=== PATIENT | male | born 1955 | race Caucasian/White ===

== ENCOUNTER 2025-05-26 21:16 | Inpatient (IN) | payer MEDICARE, BC, SELFPAY ==
[2025-05-26] VITALS (20 sets, daily range): BP systolic 132–174; BP diastolic 85–110; PULSE 65–93; RESP 17–44; O2SAT 83–100
--- NOTE | 2025-05-26 21:15 | RT.EKG_ITS ---
APPROVED REPORT Exam: Resting ECG Reason for Exam: Shortness of Breath Patient Location: E HR:82 bpm ECG Measurements Heart Rate 82 AXIS LA [id number] P [id number] QRSd 132 QRS 8 QT 369 T 30 QTc 432 Conclusion Atrial fibrillation...V-rate 66-103, irreg A-activity IVCD, consider RBBB...QRSd>120mS, terminal axis(90,270) ST depr, consider ischemia, anterolateral lds...ST <-0.10mV, I aVL V2-V6
--- NOTE | 2025-05-26 21:30 | DI.RAD_ITS ---
Exam(s) XR PORTABLE CHEST AP EXAM: XR PORTABLE CHEST AP CLINICAL HISTORY: dyspnea TECHNIQUE: 2D digital imaging was performed of the chest. One image was obtained. An AP view was obtained. COMPARISON: No exams were available for comparison FINDINGS: MEDIASTINUM: Normal. HEART: Heart is mildly enlarged. PULMONARY VASCULATURE: There is prominence of the pulmonary vasculature. LUNGS: Bilateral interstitial markings are present which may represent edema. No focal consolidating infiltrate is seen. PLEURAL SPACE: No pleural effusion or pneumothorax. BONE:Within normal limits for the patient's age. OTHER FINDINGS:Normal. IMPRESSION: 1. Cardiomegaly, pulmonary of venous congestion and interstitial edema. 2. The preliminary [facility] report was reviewed. DATA REPOSITORY: RADIATION DOSE DELIVERED:
[2025-05-26 21:33] LABS: BE (Venous) 5 mmol/L (-2-3); HCO3 (Venous) 32 mmol/L (23-28); O2 Sat (Venous) 56 %; TCO2 (Venous) 31 mmol/L (24-29); pO2 (Venous) 35 mmHg
[2025-05-26 21:34] LABS: Abs Immature Grans 0.21 10^3/uL (0.0-0.06); HCT 35.1 % (40.0-50.0); HGB 10.3 g/dL (13.5-17.5); Immature Grans % 2.4 %; MCH 28.2 pg (27.0-33.0); MCHC 29.3 % (32.0-36.0); MCV 96 fL (80-95); MPV 9.1 fL (8.0-11.0); Platelet Count 205 10^3/uL (130-400); RBC 3.65 10^6/uL (4.36-5.78); RDW 15.9 % (11.8-14.1); RDW-SD 55.6 fL; WBC 8.76 10^3/uL (4.4-10.8)
[2025-05-26 21:36] LABS: pCO2 (Venous) 74 mmHg (41-51)
--- NOTE | 2025-05-26 21:50 | ED.GENADUL_ITS ---
Discharge Plan Disposition Patient Disposition: Admit to [facility] Condition: Stable Discharge Details Clinical Impression: Acute respiratory failure with hypoxia and hypercapnia, Acute exacerbation of congestive heart failure Primary Care Provider: RenettaLocal ED Provider: Kiran Gaspar Home Meds and New Rx's Prescriptions: No Action Xarelto 20 mg tablet 20 mg PO DAILY Rx Instructions: must administer with evening meal furosemide [Lasix] 20 mg tablet 20 mg PO BID insulin lispro [Humalog KwikPen Insulin] 100 unit/mL insulin pen 1 sliding scale dose subcut USEASDIRECTD atorvastatin [Lipitor] 10 mg tablet 10 mg PO DAILY metoprolol tartrate 50 mg tablet 50 mg PO BID Ozempic 0.25 mg or 0.5 mg (2 mg/3 mL) pen injector 0.25 mg subcut QWEEK Rx Instructions: for 4 weeks metformin 1,000 mg tablet 1,000 mg PO BID HPI General Mode of arrival: EMS . Date/Time Provider Initiated Documentation: 05/26/25 21:22 . Limitations to Documentation: no limitations . Information obtained by: patient . History of Present Illness 70 year old M presents to the emergency department with the chief complaint of dyspnea, described as moderate, Patient started experiencing this day(s) (2) and it has been constant. No relieving factors improve symptom(s), No exacerbating factors reported . Patient notes no other symptoms.. Patient did receive the following treatments prior to arrival, none Related Data Home Medications ?Medication ?Instructions ?Recorded ?Confirmed atorvastatin 10 mg tablet (Lipitor) 10 mg PO DAILY 05/26/25 furosemide 20 mg tablet (Lasix) 20 mg PO BID 05/26/25 05/26/25 insulin lispro 100 unit/mL 1 sliding scale dose subcut 05/26/25 05/26/25 subcutaneous pen (Humalog KwikPen USEASDIRECTD (U-100) Insulin) metformin 1,000 mg tablet 1,000 mg PO BID 05/26/25 metoprolol tartrate 50 mg tablet 50 mg PO BID 05/26/25 05/26/25 rivaroxaban 20 mg tablet (Xarelto) 20 mg PO DAILY 05/1305/26/25 semaglutide 0.25 mg or 0.5 mg (2 0.25 mg subcut QWEEK 05/26/25 05/26/25 mg/3 mL) subcutaneous pen injector (Ozempic) General Stated Complaint: SOB UMESH: 2 Review of Systems All systems reviewed & are unremarkable except as noted in HPI and below Constitutional Constitutional: Denies chills, Denies fever(s) and Denies weakness Cardiovascular Cardiovascular: Denies chest pain and Reports dyspnea Respiratory Respiratory: Denies cough and Reports dyspnea Gastrointestinal Gastrointestinal: Denies abdominal pain, Denies nausea and Denies vomiting Neurologic Neurologic: Denies weakness Exam Const General: no acute distress Orientation: alert [facility] Head: normal to inspection Ears: external ears normal General nose exam: external nose normal Mouth: moist mucous membranes Eyes General: appearance normal, both eyes and all related structures Neck Neck: normal visual inspection Resp Auscultation: diminished lung sounds Cardio Jugular venous pressure: no JVD Rate: regular rate GI Palpation: soft and nontender Skin General skin exam: no rashes or lesions noted Neuro General: patient alert and patient oriented x3 Extrem General: edema Psych Mental Status: mental status grossly normal Course Vital Signs Vital signs: Vital Signs Pulse 83 05/26/25 21:16 Respiratory Rate 05/26/25 21:16 Blood Pressure 166/110 H 05/26/25 21:16 Pulse Oximetry 83 L 05/26/25 21:16 Pulse 83 05/26/25 21:22 Respiratory Rate 20 05/26/25 21:22 Respiratory Effort Short of Breath, Labored 05/26/25 21:22 Respiratory Depth Normal 05/26/25 21:22 Respiratory Pattern Normal 05/26/25 21:22 Blood Pressure 166/110 H 05/26/25 21:22 Blood Pressure Position Sitting 05/26/25 21:22 Pulse Oximetry 83 L 05/26/25 21:22 Oxygen Delivery Method Room Air 05/26/25 21:22 Oxygen Flow Rate 0 05/26/25 21:22 Lab/Test Results Lab/Test Results: Laboratory Tests Range/Units 05/26/25 21:24 WBC (4.4-10.8) 10^3/uL 8.76 RBC (4.36-5.78) 10^6/uL 3.65 L Hgb (13.5-17.5) g/dL 10.3 L Hct (40.0-50.0) % 35.1 L MCV (80-95) fL 96 H MCH (27.0-33.0) pg 28.2 MCHC (32.0-36.0) % 29.3 L RDW (11.8-14.1) % 15.9 H Plt Count (130-400) 10^3/uL 205 MPV (8.0-11.0) fL 9.1 Immature Gran % % 2.4 Neutrophils % % 65.2 Lymphocytes % % 19.6 Monocytes % % 10.6 Eosinophils % % 1.5 Basophils % % 0.7 Nucleated RBC % (0.0-0.3) % 0.2 Absolute Neutrophils (1.2-6.7) 10^3/uL 5.71 Absolute Lymphocytes (1.2-3.4) 10^3/uL 1.72 Absolute Monocytes (0.1-0.8) 10^3/uL 0.93 H Absolute Eosinophils (0.0-0.7) 10^3/uL 0.13 Absolute Basophils (0.0-0.2) 10^3/uL 0.06 VBG pH (7.31-7.41) 7.25 L VBG pCO2 (41-51) mmHg 74 H* VBG pO2 mmHg 35 VBG HCO3 (23-28) mmol/L 32 H VBG Total CO2 (24-29) mmol/L 31 H VBG O2 Saturation % 56 VBG Base Excess (-2-3) mmol/L 5 H Medical Decision Making 70-year-old male with a history of A-fib, depression, who comes in with chief complaint of shortness of breath over the last couple days. He denies any fevers, chills, chest pain, abdominal pain, vomiting. He was placed on CPAP with EMS which is continued here and he says he feels improved with this. He has pitting edema both lower extremities and diminished lung sounds at the bases bilaterally. He is able to speak in 4-5 word sentences. I suspect CHF exacerbation we will check a CBC, CMP, troponins, proBNP and a chest x-ray. If no clear cause for his symptoms on this workup is found we will consider a CTA to evaluate for PE if his renal function is adequate. I was planning on doing a POCUS exam to evaluate his EF and see if they are B-lines but unfortunately the ultrasound machine has a error message that I am not able to clear. Patient has elevated pCO2 which could be from His obesity versus possibly sleep apnea but will trial low-dose of Solu-Medrol and a DuoNeb. Patient feeling better and is now off of CPAP, he does still desaturate into the mid 80s off of oxygen so he is on nasal cannula. Labs show elevated proBNP, negative troponin, x-ray on my read consistent with CHF. He is already urinated 200 cc after evaluating milligrams of Lasix since he is on 40 mg daily. Given his hypoxia and his presentation I feel he should be admitted, spoke with Dr. Cast who accepts for admission Differential Diagnosis Differential Diagnosis: CHF, pneumonia, ACS Lab Data Lab results reviewed: Yes I reviewed the patient's lab results. ECG Data Attestation: I personally reviewed and interpreted this ECG (s) as follows: Prior ECG tracings: not available for review Interpretation: A-fib, rate of 82, no STEMI [facility] All Active Problems (Updated 05/26/25 @ 22:41 by Kiran Gaspar MD) Insulin dependent type 2 diabetes mellitus (Acute) Atrial fibrillation (Chronic) Acute exacerbation of congestive heart failure (Acute) Acute respiratory failure with hypoxia and hypercapnia (Acute) Social History Smoking risk assessment performed?: No
[2025-05-26 21:52] LABS: INR 1.2 (0.9-1.1); PTT Activated 27.1 sec (20.6-30.2); Prothrombin Time 11.6 sec (9.1-11.1)
[2025-05-26 21:59] LABS: ALT 22 U/L (16-63); AST 16 U/L (15-37); Albumin 3.2 g/dL (3.4-5.0); Alkaline Phosphatase 53 U/L (46-116); Anion Gap 4.7 mmol/L (3-11); BUN 23 mg/dL (7-18); Bilirubin, Total 0.3 mg/dL (0.2-1.0); CO2 33.3 mmol/L (21.0-32.0); Calcium 8.6 mg/dL (8.5-10.1); Chloride 104 mmol/L (98-107); Estimated GFR 96.40 (mL/min/1.73m2); Glucose 194 mg/dL (74-106); Magnesium 1.8 mg/dL (1.8-2.4); NT-proBNP 2347 pg/mL (<300); Potassium 5.3 mmol/L (3.5-5.1); Sodium 142 mmol/L (136-145); Total Protein 7.4 g/dL (6.4-8.2); Troponin I 13 ng/L (<or=76)
[2025-05-26] MEDS: methylPREDNISolone SUCC 125 MG VIAL IVP (22:09)
[2025-05-26] MEDS: Furosemide 100 MG/10 ML VIAL 80 MG IVP (22:09)
--- NOTE | 2025-05-26 22:29 | W.PM.HP.N ---
Date of service: 05/26/25 Time of Service: 22:29 Assessment and Plan Assessment and plan (1) Acute respiratory failure with hypoxia and hypercapnia: Status: Acute Assessment and plan: - Likely secondary to presumed acute exacerbation of congestive heart failure with lower extremity edema and pulmonary edema seen on chest x-ray - Pulse ox noted to be in the low 80s when presenting in the emergency department on room air, additionally VBG showed elevated CO2 - Patient was placed on CPAP given IV methylprednisolone for presumed superimposed COPD exacerbation (2) Acute exacerbation of congestive heart failure: Status: Acute Assessment and plan: - Unknown last EF as patient does not seek care in this area - Status post 80 mg IV Lasix in the emergency department - Continue to follow strict I's and O's - Continue 40 mg IV Lasix twice daily - Follow-up a.m. echocardiogram - Continue home Lipitor, hold home Lasix 20 mg p.o. twice daily as he will be given IV (3) Atrial fibrillation: Status: Chronic Assessment and plan: - Continue home metoprolol tartrate 50 mg p.o. twice daily, and 20 mg Xarelto (4) Insulin dependent type 2 diabetes mellitus: Status: Acute Assessment and plan: - Hold home Ozempic, Humalog and metformin - Sliding scale insulin, carb consistent diet History of Present Illness History of Present Illness Chief Complaint: shortness of breath Narrative: 62-year-old gentleman with a past medical history of congestive heart failure, atrial fibrillation, IDDM who presents to the emergency department with shortness of breath. Patient states that over the last few days he has become progressively more short of breath and noticed that he was experiencing some lower extremity edema. He denied any headache, lightheadedness, cough, fever, chest pain, nausea vomiting or diarrhea. According to EMS upon patient's arrival he was saturating in the low 80s and was placed on supplemental oxygen, this was confirmed upon arrival when patient's oxygen saturation was noted as being 83 on room air. Given his work of breathing he was placed on CPAP and did have improvement in his respiratory status. He was noted as having lower extremity edema and diminished breath sounds in bilateral bases. CBC and CMP were unremarkable patient did have elevated proBNP of 2347, VBG showed elevated CO2 of 70, and x-ray did show pulmonary edema for which patient received 80 mg of IV Lasix and had good urine output. Additionally, patient was also given IV Solu-Medrol though he does not have history of COPD. At which time emergency room physician paged hospitalist for admission for patient with acute hypoxic and hypercapnic respiratory failure secondary to acute exacerbation of congestive heart failure. Review of Systems All systems reviewed & are unremarkable except as noted in HPI and below PFSH All Active Problems (Updated 05/26/25 @ 22:41 by Kiran Gaspar MD) Insulin dependent type 2 diabetes mellitus (Acute) Atrial fibrillation (Chronic) Acute exacerbation of congestive heart failure (Acute) Acute respiratory failure with hypoxia and hypercapnia (Acute) Social History Smoking risk assessment performed?: No Meds Allergies and Home Medications Home Medications ?Medication ?Instructions ?Recorded ?Confirmed ?Type atorvastatin 10 mg tablet (Lipitor) 10 mg PO DAILY 05/26/25 05/26/25 History furosemide 20 mg tablet (Lasix) 20 mg PO BID 05/26/25 05/26/25 History insulin lispro 100 unit/mL 1 sliding scale dose subcut 05/26/25 05/26/25 History subcutaneous pen (Humalog KwikPen USEASDIRECTD (U-100) Insulin) metformin 1,000 mg tablet 1,000 mg PO BID 05/26/25 05/26/25 History metoprolol tartrate 50 mg tablet 50 mg PO BID 05/26/25 05/26/25 History rivaroxaban 20 mg tablet (Xarelto) 20 mg PO DAILY 05/26/25 05/26/25 History semaglutide 0.25 mg or 0.5 mg (2 0.25 mg subcut QWEEK 05/26/25 05/26/25 History mg/3 mL) subcutaneous pen injector (Ozempic) Exam Narrative Exam Narrative: Fatigued, obese gentleman laying in bed in no acute distress with CPAP on, heart regular rhythm, lungs with diminished breath sounds in bilateral bases, abdomen soft, nontender, nondistended Results Labs 05/27/25 05:18 05/27/25 05:18 Labs: Laboratory Results - last 24 hr 05/26/25 21:24 WBC 8.76 RBC 3.65 L Hgb 10.3 L Hct 35.1 L MCV 96 H MCH 28.2 MCHC 29.3 L RDW 15.9 H Plt Count 205 MPV 9.1 Immature Gran % 2.4 Neutrophils % 65.2 Lymphocytes % 19.6 Monocytes % 10.6 Eosinophils % 1.5 Basophils % 0.7 Nucleated RBC % 0.2 Absolute Neutrophils 5.71 Absolute Lymphocytes 1.72 Absolute Monocytes 0.93 H Absolute Eosinophils 0.13 Absolute Basophils 0.06 PT 11.6 H INR 1.2 H APTT 27.1 VBG pH 7.25 L VBG pCO2 74 H* VBG pO2 35 VBG HCO3 32 H VBG Total CO2 31 H VBG O2 Saturation 56 VBG Base Excess 5 H Sodium 142 Potassium 5.3 H Chloride 104 Carbon Dioxide 33.3 H Anion Gap 4.7 BUN 23 H Creatinine 0.8 Est GFR (CKD-EPI 2020) 96.40 Glucose 194 H Calcium 8.6 Magnesium 1.8 Total Bilirubin 0.3 AST 16 ALT 22 Alkaline Phosphatase 53 Troponin I 13 NT-Pro-B Natriuret Pep 2347 H Total Protein 7.4 Albumin 3.2 L Last Vital Signs Pulse 83 05/26/25 21:22 Resp 20 05/26/25 21:22 BP 166/110 H 05/26/25 21:22 Pulse Ox 83 L 05/26/25 21:22 Time Spent Time spent with Patient: >75 minutes Time was spent: preparing to see the patient(eg.review tests), obtaining and/or reviewing separately otained hiistory, ordering medications,tests, procedures, referring, communicating with other health resident caregiver, indepentently interpreting results, counseling the patient and care coordination
[2025-05-26] MEDS: Albuterol/Ipratropium 3 ML UPD VIAL UPD (22:32)
--- NOTE | 2025-05-26 23:12 | DI.[facility]_ITS ---
PROCEDURE INFORMATION: Exam: XR Chest Exam date and time: 05/26/2025 9:57 PM Age: 70 years old Clinical indication: Dyspnea TECHNIQUE: Imaging protocol: Radiologic exam of the chest. Views: 1 view. COMPARISON: No relevant prior studies available. FINDINGS: Lungs: Changes of pulmonary vascular congestion and interstitial edema. Pleural spaces: Unremarkable. No pleural effusion. No pneumothorax. Heart/Mediastinum: Heart is prominent. Bones/joints: Unremarkable. IMPRESSION: Pulmonary vascular congestion and interstitial edema. Dictated and Authenticated by: Karl Burnett MD. Orderin Chasity Beck MD
[2025-05-26 23:14] LABS: Troponin I 16 ng/L (<or=76)
[2025-05-27] VITALS (105 sets, daily range): BP systolic 139–188; BP diastolic 62–155; PULSE 50–123; RESP 14–32; TEMP 36–37.4; O2SAT 85–100
[2025-05-27 01:13] LABS: Troponin I 14 ng/L (<or=76)
[2025-05-27] MEDS: Albuterol 2.5 MG/3 ML INH SOLN VIAL UPD ×2 (02:18→06:10)
--- NOTE | 2025-05-27 02:20 | NUR.NOTE ---
Nursing Note: Pt rang call light stating he feels like he can't take a good deep breath. Pt is visibly tachypneic, diaphoretic, with increased work of breathing, O2 sats 86-89% on 6L oxymask. Placed back on CPAP, respiratory to bedside. Given PRN neb, see MAR. See CPAP charting for settings. O2 saturation improved to 90-91% on CPAP. Notified Fallon Cast MD of patient situation, no new orders at this time.
[2025-05-27] MEDS: Acetaminophen 325 MG TAB 650 MG PO ×2 (04:04→18:15)
[2025-05-27] MEDS: Albuterol/Ipratropium 3 ML UPD VIAL UPD ×4 (04:16→22:15)
[2025-05-27 05:24] LABS: HCT 35.5 % (40.0-50.0); HGB 11.0 g/dL (13.5-17.5); MCH 29.2 pg (27.0-33.0); MCHC 31.0 % (32.0-36.0); MCV 94 fL (80-95); MPV 9.2 fL (8.0-11.0); Platelet Count 187 10^3/uL (130-400); RBC 3.77 10^6/uL (4.36-5.78); RDW 15.6 % (11.8-14.1); RDW-SD 53.1 fL; WBC 8.06 10^3/uL (4.4-10.8)
[2025-05-27 05:40] LABS: Anion Gap 9.6 mmol/L (3-11); BUN 25 mg/dL (7-18); CO2 30.4 mmol/L (21.0-32.0); Calcium 8.9 mg/dL (8.5-10.1); Chloride 101 mmol/L (98-107); Estimated GFR 65.87 (mL/min/1.73m2); Glucose 261 mg/dL (74-106); Magnesium 1.4 mg/dL (1.8-2.4); Potassium 5.3 mmol/L (3.5-5.1); Sodium 141 mmol/L (136-145)
[2025-05-27 09:31] LABS: COVID-19 PCR Negative (Negative); RSV PCR Negative (Negative)
[2025-05-27] MEDS: Furosemide 40 MG/4 ML VIAL IVP ×2 (10:20→17:20)
[2025-05-27] MEDS: Metoprolol 50 MG TAB PO ×2 (10:20→19:56)
[2025-05-27] MEDS: Insulin Aspart 300 UNITS/3 ML PEN SC ×4 (10:20→23:03)
--- NOTE | 2025-05-27 10:29 | PDOC.CMIN ---
Date of service: 05/27/25 Time of Service: 10:29 Care Management Initial Assmt Initial Assessment Reason for Hospitalization: acute respiratory failure with hypoxia and hypercapnia Functional Status/Living Situation Patient Presentation: Cecil was lying in bed when CM met with him. He stated that his had just been visiting, but she left to get him a burger from [employer]. Cecil reported that they live in [place], [place], which is where his PCP is located. Cecil is currently staying in a camper at the [facility] in [facility]. 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 He reported that his has a daughter that he considers his own, who lives in [place]. He stated that he has O2 at baseline, but only for while he is sleeping, and he stated that he is not compliant with it. 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 He stated that he is hoping to be able to discharge tomorrow, if he continues to improve. CM will continue to follow. 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) Instrumental Activities of Daily Living (ADLs): Independent Medications Medication Management: No Issues/Barriers identified Physical Functioning/Mobility Assistive Device: CPAP, which he reports that he does not use Advance Directives Advance Directives: Do you have an Advance Directive: Y Today, 07:49 AD On File at [facility]: N Today, 07:49 Date Asked 05/26/25 Today, 07:49 AD Date Reviewed COLST On File at [facility] COLST Date Scanned Code Status Resuscitation Status Full Code Insurance Coverage/Financial Issues Insurance: [facility]/BS of [facility] Care Team Visit Care Team Role Provider Type Local No Primary Care Provider NON-[facility] STAFF PHYSICIAN Kiran Gaspar MD Emergency Provider [facility] STAFF PHYSICIAN Rodrigo Cast MD Admit Provider [facility] STAFF PHYSICIAN Attending Provider Discharge Potential Discharge Needs: PCP F/U Appt Anticipated Barriers to Discharge: None Identified Patient/Family Education Needs: Review discharge instructions, discuss Ask Me Three Transportation: Private vehicle Plan: Anticipate Cecil will return home once medically cleared. His will drive him home via private vehicle. He will follow up with his local PCP and discharge plan of care. CM will continue to follow. Social Determinants of Health Screening Will the Patient Participate in the Screening?: Declined to provide PFSH All Active Problems (Updated 05/26/25 @ 22:41 by Kiran Gaspar MD) Insulin dependent type 2 diabetes mellitus (Acute) Atrial fibrillation (Chronic) Acute exacerbation of congestive heart failure (Acute) Acute respiratory failure with hypoxia and hypercapnia (Acute) Social History Smoking risk assessment performed?: No
--- NOTE | 2025-05-27 12:33 | W.PM.PROGNOT ---
Date of Service Date of service: 05/27/25 Time of Service: 12:33 Assessment and Plan Assessment and plan (1) Acute respiratory failure with hypoxia and hypercapnia: Status: Acute Assessment and plan: - Likely secondary to presumed acute exacerbation of congestive heart failure with lower extremity edema and pulmonary edema seen on chest x-ray - Pulse ox noted to be in the low 80s when presenting in the emergency department on room air, additionally VBG showed elevated CO2 - repeat blood gas this afternoon pH 7.37; CO2 53 Bicarb 31 - Patient was placed on CPAP given IV methylprednisolone for presumed superimposed COPD exacerbation (2) Acute exacerbation of congestive heart failure: Status: Acute Assessment and plan: - Unknown last EF as patient does not seek care in this area - Status post 80 mg IV Lasix in the emergency department - Continue to follow strict I's and O's - Continue 40 mg IV Lasix twice daily - Follow-up a.m. echocardiogram - Continue home Lipitor, hold home Lasix 20 mg p.o. twice daily as he will be given IV (3) Atrial fibrillation: Status: Chronic Assessment and plan: - Continue home metoprolol tartrate 50 mg p.o. twice daily, and 20 mg Xarelto (4) Insulin dependent type 2 diabetes mellitus: Status: Acute Assessment and plan: - Hold home Ozempic, Humalog and metformin - Sliding scale insulin, carb consistent diet Subjective Subjective Patient reports: no new complaints, tolerating liquids well, voiding w/o difficulty and afebrile; denies diarrhea or vomiting Exam Const General: no acute distress Orientation: alert [facility]EN[facility] Head: normal to inspection Ears: external ears normal General nose exam: external nose normal Mouth: moist mucous membranes Eyes General: appearance normal, both eyes and all related structures Neck Neck: normal visual inspection Resp Auscultation: diminished lung sounds Cardio Jugular venous pressure: no JVD Rate: regular rate GI Palpation: soft and nontender Skin General skin exam: no rashes or lesions noted Neuro General: patient alert and patient oriented x3 Extrem General: edema Psych Mental Status: mental status grossly normal Objective Last Vital Signs Pulse 94 H 05/27/25 06:01 Resp 20 05/27/25 06:01 BP 170/87 H 05/27/25 06:01 Pulse Ox 95 05/27/25 06:01 Laboratory Results - last 24 hr 05/26/25 05/26/25 05/27/25 21:24 22:52 00:50 WBC 8.76 RBC 3.65 L Hgb 10.3 L Hct 35.1 L MCV 96 H MCH 28.2 MCHC 29.3 L RDW 15.9 H Plt Count 205 MPV 9.1 Immature Gran % 2.4 Neutrophils % 65.2 Lymphocytes % 19.6 Monocytes % 10.6 Eosinophils % 1.5 Basophils % 0.7 Nucleated RBC % 0.2 Absolute Neutrophils 5.71 Absolute Lymphocytes 1.72 Absolute Monocytes 0.93 H Absolute Eosinophils 0.13 Absolute Basophils 0.06 PT 11.6 H INR 1.2 H APTT 27.1 VBG pH 7.25 L VBG pCO2 74 H* VBG pO2 35 VBG HCO3 32 H VBG Total CO2 31 H VBG O2 Saturation 56 VBG Base Excess 5 H Sodium 142 Potassium 5.3 H Chloride 104 Carbon Dioxide 33.3 H Anion Gap 4.7 BUN 23 H Creatinine 0.8 Est GFR (CKD-EPI 2020) 96.40 Glucose 194 H Calcium 8.6 Magnesium 1.8 Total Bilirubin 0.3 AST 16 ALT 22 Alkaline Phosphatase 53 Troponin I 13 16 14 NT-Pro-B Natriuret Pep 2347 H Total Protein 7.4 Albumin 3.2 L Valproic Acid 74.1 COVID-19 Source SARS-CoV-2 (PCR) Influenza Type A (PCR) Influenza Type B (PCR) RSV (PCR) 05/27/25 05/27/25 05:18 07:55 WBC 8.06 RBC 3.77 L Hgb 11.0 L Hct 35.5 L MCV 94 MCH 29.2 MCHC 31.0 L RDW 15.6 H Plt Count 187 MPV 9.2 Immature Gran % Neutrophils % Lymphocytes % Monocytes % Eosinophils % Basophils % Nucleated RBC % Absolute Neutrophils Absolute Lymphocytes Absolute Monocytes Absolute Eosinophils Absolute Basophils PT INR APTT VBG pH VBG pCO2 VBG pO2 VBG HCO3 VBG Total CO2 VBG O2 Saturation VBG Base Excess Sodium 141 Potassium 5.3 H Chloride 101 Carbon Dioxide 30.4 Anion Gap 9.6 BUN 25 H Creatinine 1.2 Est GFR (CKD-EPI 2020) 65.87 Glucose 261 H Calcium 8.9 Magnesium 1.4 L Total Bilirubin AST ALT Alkaline Phosphatase Troponin I NT-Pro-B Natriuret Pep Total Protein Albumin Valproic Acid COVID-19 Source Nasopharynx SARS-CoV-2 (PCR) Negative Influenza Type A (PCR) Negative Influenza Type B (PCR) Negative RSV (PCR) Negative Time Spent with Patient Time Spent with Patient: 25-34 minutes Time was spent: preparing to see the patient(eg.review tests), ordering medications,tests, procedures, referring, communicating with other health critical care nurse, indepentently interpreting results, counseling the patient and care coordination
--- NOTE | 2025-05-27 13:11 | W.PC.ACHO ---
Registration Status: ADM IN Primary Language: Preferred Language: ED Information & Data Chief Complaint SOB 05/26/25 21:54 Triage Note increased difficulty 05/26/25 21:16 breathing starting yesterday . EMS witnessed increased work of breathing, diminished lung sounds, and hypoxia as read on their monitor. PT reports Hx of CHF. Bilateral pedal edema. Most Recent Vital Signs Pulse 103 H 05/27/25 12:16 Pulse 108 H 05/27/25 12:30 Respiratory Rate 32 H 05/27/25 12:30 Respiratory Effort Short of Breath, Labored 05/26/25 21:22 Respiratory Depth Normal 05/26/25 21:22 Respiratory Pattern Normal 05/26/25 21:22 Blood Pressure 181/116 H 05/27/25 12:16 Blood Pressure Mean 131 05/27/25 12:16 Blood Pressure Position Sitting 05/26/25 21:22 Pulse Oximetry 97 05/27/25 12:16 Oxygen Delivery Method OxyMask 05/27/25 04:05 Oxygen Flow Rate 6 05/27/25 04:05 Fraction of Inspired Oxygen (FIO2) 35 05/27/25 04:21 Pain Level 6 05/27/25 04:04 Comment CPAP 05/27/25 03:01 Active Medications Generic Name Dose Route Start Last Admin Trade Name Freq PRN Reason Stop Dose Admin Acetaminophen 650 mg 05/27/25 00:26 05/27/25 04:04 Acetaminophen 325 Mg Tab PO 650 mg Q4H PRN PRN Administration Albuterol Sulfate 2.5 mg 05/27/25 00:26 05/27/25 06:10 Albuterol 2.5 Mg/3 Ml Inh Soln Vial UPD 2.5 mg Q2H PRN PRN Administration Albuterol/Ipratropium 3 ml 05/27/25 04:00 05/27/25 10:25 Albuterol/Ipratropium 3 Ml Upd Vial UPD 3 ml Q6H VILMA Administration Furosemide 40 mg 05/27/25 08:00 05/27/25 10:20 Furosemide 40 Mg/4 Ml Vial IVP 40 mg BID@0800,1600 VILMA Administration Insulin Aspart 0 - 9 units 05/27/25 08:00 05/27/25 10:20 Insulin Aspart 300 Units/3 Ml Pen SC 5 units 0800,1200,1700,2200 VILMA Administration Protocol Metoprolol Tartrate 50 mg 05/27/25 08:30 05/27/25 10:20 Metoprolol 50 Mg Tab PO 50 mg BID VILMA Administration IV IV Catheter Type [Left Peripheral IV Antecubital] IV Catheter Gauge [Left 18 Antecubital] Diet Orders Category Date Time Status Heart Healthy Eating [DIET] Nutrition 05/27/25 Breakfast Active Diagnostics 05/27/25 05/27/25 05/27/25 Range/Units 07:55 05:18 00:50 WBC 8.06 (4.4-10.8) 10^3/uL RBC 3.77 L (4.36-5.78) 10^6/uL Hgb 11.0 L (13.5-17.5) g/dL Hct 35.5 L (40.0-50.0) % MCV 94 (80-95) fL MCH 29.2 (27.0-33.0) pg MCHC 31.0 L (32.0-36.0) % RDW 15.6 H (11.8-14.1) % Plt Count 187 (130-400) 10^3/uL MPV 9.2 (8.0-11.0) fL Immature Gran % % Neutrophils % % Lymphocytes % % Monocytes % % Eosinophils % % Basophils % % Nucleated RBC % (0.0-0.3) % Absolute Neutrophils (1.2-6.7) 10^3/uL Absolute Lymphocytes (1.2-3.4) 10^3/uL Absolute Monocytes (0.1-0.8) 10^3/uL Absolute Eosinophils (0.0-0.7) 10^3/uL Absolute Basophils (0.0-0.2) 10^3/uL PT (9.1-11.1) sec INR (0.9-1.1) APTT (20.6-30.2) sec VBG pH (7.31-7.41) VBG pCO2 (41-51) mmHg VBG pO2 mmHg VBG HCO3 (23-28) mmol/L VBG Total CO2 (24-29) mmol/L VBG O2 Saturation % VBG Base Excess (-2-3) mmol/L Sodium 141 (136-145) mmol/L Potassium 5.3 H (3.5-5.1) mmol/L Chloride 101 (98-107) mmol/L Carbon Dioxide 30.4 (21.0-32.0) mmol/L Anion Gap 9.6 (3-11) mmol/L BUN 25 H (7-18) mg/dL Creatinine 1.2 (0.70-1.30) mg/dL Est GFR (CKD-EPI 2020) 65.87 (mL/min/1.73m2) Glucose 261 H (74-106) mg/dL Calcium 8.9 (8.5-10.1) mg/dL Magnesium 1.4 L (1.8-2.4) mg/dL Total Bilirubin (0.2-1.0) mg/dL AST (15-37) U/L ALT (16-63) U/L Alkaline Phosphatase (46-116) U/L Troponin I 14 (<or=76) ng/L NT-Pro-B Natriuret Pep (<300) pg/mL Total Protein (6.4-8.2) g/dL Albumin (3.4-5.0) g/dL Valproic Acid ( - 150) ug/mL COVID-19 Source Nasopharynx SARS-CoV-2 (PCR) Negative (Negative) Influenza Type A (PCR) Negative (Negative) Influenza Type B (PCR) Negative (Negative) RSV (PCR) Negative (Negative) 05/26/25 05/26/25 Range/Units 22:52 21:24 WBC 8.76 (4.4-10.8) 10^3/uL RBC 3.65 L (4.36-5.78) 10^6/uL Hgb 10.3 L (13.5-17.5) g/dL Hct 35.1 L (40.0-50.0) % MCV 96 H (80-95) fL MCH 28.2 (27.0-33.0) pg MCHC 29.3 L (32.0-36.0) % RDW 15.9 H (11.8-14.1) % Plt Count 205 (130-400) 10^3/uL MPV 9.1 (8.0-11.0) fL Immature Gran % 2.4 % Neutrophils % 65.2 % Lymphocytes % 19.6 % Monocytes % 10.6 % Eosinophils % 1.5 % Basophils % 0.7 % Nucleated RBC % 0.2 (0.0-0.3) % Absolute Neutrophils 5.71 (1.2-6.7) 10^3/uL Absolute Lymphocytes 1.72 (1.2-3.4) 10^3/uL Absolute Monocytes 0.93 H (0.1-0.8) 10^3/uL Absolute Eosinophils 0.13 (0.0-0.7) 10^3/uL Absolute Basophils 0.06 (0.0-0.2) 10^3/uL PT 11.6 H (9.1-11.1) sec INR 1.2 H (0.9-1.1) APTT 27.1 (20.6-30.2) sec VBG pH 7.25 L (7.31-7.41) VBG pCO2 74 H* (41-51) mmHg VBG pO2 35 mmHg VBG HCO3 32 H (23-28) mmol/L VBG Total CO2 31 H (24-29) mmol/L VBG O2 Saturation 56 % VBG Base Excess 5 H (-2-3) mmol/L Sodium 142 (136-145) mmol/L Potassium 5.3 H (3.5-5.1) mmol/L Chloride 104 (98-107) mmol/L Carbon Dioxide 33.3 H (21.0-32.0) mmol/L Anion Gap 4.7 (3-11) mmol/L BUN 23 H (7-18) mg/dL Creatinine 0.8 (0.70-1.30) mg/dL Est GFR (CKD-EPI 2020) 96.40 (mL/min/1.73m2) Glucose 194 H (74-106) mg/dL Calcium 8.6 (8.5-10.1) mg/dL Magnesium 1.8 (1.8-2.4) mg/dL Total Bilirubin 0.3 (0.2-1.0) mg/dL AST 16 (15-37) U/L ALT 22 (16-63) U/L Alkaline Phosphatase 53 (46-116) U/L Troponin I 16 13 (<or=76) ng/L NT-Pro-B Natriuret Pep 2347 H (<300) pg/mL Total Protein 7.4 (6.4-8.2) g/dL Albumin 3.2 L (3.4-5.0) g/dL Valproic Acid 74.1 ( - 150) ug/mL COVID-19 Source SARS-CoV-2 (PCR) (Negative) Influenza Type A (PCR) (Negative) Influenza Type B (PCR) (Negative) RSV (PCR) (Negative) [id number] Documentation Fingerstick Glucose Start: 05/27/25 00:26 Freq: AC & HS Status: Active Protocol: Activity Type Activity Date Activity User E-sign Co-sign Detail Recorded Client Recorded Date Recorded By Document 05/27/25 08:16 BKG DAEMON(5) [id number] 05/27/25 08:18 BKG DAEMON(6) Intake and Output - 24 Hour Total 05/26/25 21:14 thru 05/27/25 05:24 Intake Total 10 Output Total 2450 Balance -2440 Weight 145.15 kg Intake: IV 10 Output: Urine 2450 Falls Risk Assessment History of Falls No History 05/26/25 21:22 Contributing Factors No Factors 05/26/25 21:22 Ambulatory Aids Independent 05/26/25 21:22 Tubes/Lines None 05/26/25 21:22 Gait Evaluation No gait disturbance 05/26/25 21:22 Cognition No cognitive impairment 05/26/25 21:22 Fall Total Score 0 05/26/25 21:22 Level of Risk Standard/Low Risk 05/26/25 21:22 Problems Insulin dependent type 2 diabetes mellitus (Acute) Atrial fibrillation (Chronic) Acute exacerbation of congestive heart failure (Acute) Acute respiratory failure with hypoxia and hypercapnia (Acute) Notes 05/27/25 02:20 Nursing Notes by Kyle Youngblood Nursing Note: Pt rang call light stating he feels like he can't take a good deep breath. Pt is visibly tachypneic, diaphoretic, with increased work of breathing, O2 sats 86-89% on 6L oxymask. Placed back on CPAP, respiratory to bedside. Given PRN neb, see MAR. See CPAP charting for settings. O2 saturation improved to 90-91% on CPAP. Notified Fallon Cast MD of patient situation, no new orders at this time. Initialized on 05/27/25 02:20 - END OF NOTE v v v v v v v v v Sending and/or Receiving Nurses: Please use comment section below to note any information pertinent to the patient hand-off not included above. Information / Comments: Report received from: Beverly Engle RN All questions answered
[2025-05-27 14:17] LABS: BE (Venous) 5 mmol/L (-2-3); HCO3 (Venous) 31 mmol/L (23-28); O2 Sat (Venous) 81 %; TCO2 (Venous) 28 mmol/L (24-29); pCO2 (Venous) 53 mmHg (41-51); pO2 (Venous) 47 mmHg
[2025-05-27] MEDS: MAGNESIUM SULFATE 2 GM/50 ML BAG IV_INF (14:49)
[2025-05-27] MEDS: Normal Saline Flush 10 ML SYR IVP ×3 (14:50→22:44)
[2025-05-27] MEDS: Rivaroxaban 10 MG TABLET 20 MG PO (17:20)
[2025-05-27] MEDS: Atorvastatin 10 MG TAB PO (19:56)
[2025-05-27] MEDS: Cyanocobalamin 500 MCG TAB 1000 MCG PO (19:56)
[2025-05-27] MEDS: QUEtiapine 50 MG TAB PO (19:57)
[2025-05-27] MEDS: Divalproex 250 MG TABEC 1000 MG PO (19:57)
--- NOTE | 2025-05-27 22:28 | DI.US_ITS ---
APPROVED REPORT EXAM: Comprehensive 2D, Doppler, and color-flow Echocardiogram Patient Location: ER Room/Bed: 4 Etcher Machine: Jamilah Vicente RDCS (AE) Indications: CHF exacerbation, A Fib, IDDM Other Information Study Quality: Fair. Technically limited study due to body habitus, eam done bedside ER. Conclusion Normal left ventricular wall thickness and chamber size. Ejection fraction is 55 to 60%. Wall motion is normal Normal right ventricular size and function Both atria are normal in size There are no structural valvular abnormalities Mild mitral and tricuspid regurgitation Estimated right ventricular systolic pressure is 49 mmHg Mildly dilated ascending aorta Patient is in atrial fibrillation with a rapid rate throughout the study Wall motion Left Ventricle The left ventricle is normal size. The overall left ventricular systolic function appears normal. Beat to beat variation, arrhythmia throughout exam. There is normal left ventricular wall thickness. Regional wall motion is not well visualized but grossly normal. There is no ventricular septal defect vi sualized. LVEF is 56%. Right Ventricle Right ventricle is grossly normal in size. Right ventricular systolic function is grossly normal. Atria The left atrium size is normal. The right atrium size is normal. The interatrial septum is intact with no evidence for an atrial septal defect. Aortic Valve The aortic valve is normal in structure. Aortic valve is trileaflet. There is no aortic valvular stenosis. No aortic regurgitation is present. Mitral Valve The mitral valve is normal in structure. No evidence of mitral valve stenosis. Mild mitral regurgitation. Tricuspid Valve The tricuspid valve is normal in structure. There is no tricuspid valve stenosis. Mild tricuspid regurgitation. The RVSP is 49.4mmHg. Pulmonic Valve The pulmonary valve is normal in structure. There is no pulmonic valvular stenosis. Trace pulmonic regurgitation. Great Vessels The aortic root is normal in size. The ascending aorta is mildly dilated. The IVC collapses <50% with inspiration. Pericardium There is no pericardial effusion. 2D Dimensions IVSD d PLAX 1.20 cm M: 0.6-1.2 Ao Root d 3.19 cm M: 3.1 - 3.7 LVPW d PLAX 1.21 cm M: 0.6 - 1.2 Ao Asc Diam d 3.63 cm M: 2.6 - 3.4 LVID d PLAX 5.81 cm M: 4.2 - 5.8 LVDs 4.10 cm M: 2.5 - 4.0 LV EF Teichholz 56.0 % FS 29.72 % LV EDV (Teich) 167.4 mL LV ESV (Teich) 73.6 mL M-Mode TAPSE 1.82 cm (M/F) >1.7 Auto EF LV EDV A4C 192.5 mL LV EDV A2C 150.6 mL LV EDV BP 170.6 mL LV ESV A4C 87.3 mL LV ESV A2C 66.1 mL LV ESV BP 74.3 mL LVEF(%) A4C 54.6 % LVEF(%) A2C 56.1 % LVEF(%) BP 56.5 % LV SV A4C 105.2 ml LV SV A2C 84.5 ml LV SV BP 96.3 ml LV CO A4C 12.1 L/min LV CO A2C 11.5 L/min LV CO BP 11.8 L/min HR A4C 115.39 BPM HR A2C 135.75 BPM LV EDV Index (BP) LA Volume LA Length A4C 7.3 cm LA Length A2C 6.7 cm LA Area A4C s 28.93 cm2 LA Area A2C s 29.36 cm2 LA Vol A4C A-L 97.52 mL LA Vol A2C A-L 108.82 mL LA Vol Biplane A- L 107.2 mL LA Vol/BSA A4C A-L LA Vol/BSA A2C A-L LA Vol/BSA BP A-L 31.3 mL/m2 LA Vol A4C MOD 92.8 mL LA Vol A2C MOD 102.4 mL LA Vol BP MOD 101.2 mL RA Volume RA Area A4C 29.6 cm2 RA ESV A4C (A-L) 103.3mL RA Vol/BSA A4C A-L RA Length A4C 7.2 cm RA ESV A4C (MOD) 97.3mL LV Diastology MV E' medial 0.123 (>0.07 m/s) MV E Vmax 1.38 (0.4-1.3 m/s) MV E' lateral 0.149 (>0.1 m/s) Aortic Valve AoV Vmax 1.81 m/s LVOT Vmax 1.33 m/s AoV Peak Grad 13.1 mmHg LVOT Peak Grad 7.1 mmHg AoV Area (Vmax) 2.58 cm2 LVOT VTI 0.264 m AoV VTI 0.325 m LVOT Mean Grad 4.0 mmHg AoV Mean Khurram. 1.31 m/s LVOT SV 92.35 mL AoV Mean Grad 7.7 mmHg LVOT Diam s 2.10 cm AoV Area (VTI) 2.84 cm2 AV Regurg Peak Gr. 13.12 mmHg Velocity Ratio 0.73 Mitral Valve MV Vmax TIPS 1.32 m/s MV Mean Grad 2.3 (<2mmHg) MV Area PHT 6.20 cm2 MV VTI 0.252 m Pulmonary Valve PV Vmax 1.33 (0.5-1.5 m/s) RVOT Vmax 0.91 m/s PV Peak Grad 7.0 mmHg RVOT Peak Gr. 3.3 mmHg PV Mean Khurram 0.98 m/s RVOT VTI 0.155 m PV Mean Grad 4.2 mmHg RVOT Mean Gr. 1.9 mmHg Tricuspid Valve RA Pressure 8.00 mmHg TR Vmax 3.22 m/s TV S' 0.16 m/s TR Peak Grad 41.4 mmHg RVSP (TR) 49.4 mmHg
[2025-05-28] VITALS (20 sets, daily range): BP systolic 142–143; BP diastolic 75–86; PULSE 54–105; RESP 15–25; TEMP 36.7–37.3; O2SAT 84–96
[2025-05-28] MEDS: Albuterol/Ipratropium 3 ML UPD VIAL UPD ×2 (04:05→11:02)
[2025-05-28 07:13] LABS: Abs Immature Grans 0.13 10^3/uL (0.0-0.06); HCT 33.7 % (40.0-50.0); HGB 10.7 g/dL (13.5-17.5); Immature Grans % 1.2 %; MCH 29.3 pg (27.0-33.0); MCHC 31.8 % (32.0-36.0); MCV 92 fL (80-95); MPV 9.7 fL (8.0-11.0); Platelet Count 214 10^3/uL (130-400); RBC 3.65 10^6/uL (4.36-5.78); RDW 16.1 % (11.8-14.1); RDW-SD 54.0 fL; WBC 10.58 10^3/uL (4.4-10.8)
[2025-05-28 07:56] LABS: Anion Gap 6.9 mmol/L (3-11); BUN 43 mg/dL (7-18); CO2 32.1 mmol/L (21.0-32.0); Calcium 8.9 mg/dL (8.5-10.1); Chloride 100 mmol/L (98-107); Estimated GFR 81.98 (mL/min/1.73m2); Glucose 185 mg/dL (74-106); Magnesium 1.9 mg/dL (1.8-2.4); Potassium 5.0 mmol/L (3.5-5.1); Sodium 139 mmol/L (136-145)
[2025-05-28] MEDS: Insulin Aspart 300 UNITS/3 ML PEN SC ×2 (08:01→12:14)
[2025-05-28] MEDS: Furosemide 40 MG/4 ML VIAL IVP (08:03)
[2025-05-28] MEDS: Spironolactone 25 MG TAB PO (08:04)
[2025-05-28] MEDS: Cyanocobalamin 500 MCG TAB 1000 MCG PO (08:04)
[2025-05-28] MEDS: Divalproex 250 MG TABEC 750 MG PO (08:04)
[2025-05-28] MEDS: metFORMIN 500 MG TAB 1000 MG PO (08:04)
[2025-05-28] MEDS: Gabapentin 600 MG TAB PO (08:04)
[2025-05-28] MEDS: Aspirin 81 MG CHEW PO (08:05)
[2025-05-28] MEDS: Normal Saline Flush 10 ML SYR IVP (08:05)
[2025-05-28] MEDS: Metoprolol 50 MG TAB PO (08:05)
--- NOTE | 2025-05-28 08:05 | W.PM.PROGNOT ---
Date of Service Date of service: 05/28/25 Time of Service: 08:05 Objective Last Vital Signs Temp 37.3 C 05/28/25 00:08 Pulse 90 05/28/25 04:05 Resp 20 05/28/25 04:05 BP 142/75 H 05/28/25 00:08 Pulse Ox 92 05/28/25 07:49 Laboratory Results - last 24 hr 05/27/25 05/27/25 05/28/25 07:55 14:09 05:50 WBC 10.58 RBC 3.65 L Hgb 10.7 L Hct 33.7 L MCV 92 MCH 29.3 MCHC 31.8 L RDW 16.1 H Plt Count 214 MPV 9.7 Immature Gran % 1.2 Neutrophils % 75.9 Lymphocytes % 12.9 Monocytes % 9.7 Eosinophils % 0.0 Basophils % 0.3 Nucleated RBC % 0.0 Absolute Neutrophils 8.03 H Absolute Lymphocytes 1.36 Absolute Monocytes 1.03 H Absolute Eosinophils 0.00 Absolute Basophils 0.03 VBG pH 7.37 VBG pCO2 53 H VBG pO2 47 VBG HCO3 31 H VBG Total CO2 28 VBG O2 Saturation 81 VBG Base Excess 5 H COVID-19 Source Nasopharynx SARS-CoV-2 (PCR) Negative Influenza Type A (PCR) Negative Influenza Type B (PCR) Negative RSV (PCR) Negative
--- NOTE | 2025-05-28 11:18 | DSE_ITS ---
Date of service: 05/28/25 Time of Service: 11:18 DS: Diagnosis Discharge Diagnosis (1) Acute respiratory failure with hypoxia and hypercapnia: Status: Acute (2) Acute exacerbation of congestive heart failure: Status: Acute (3) Atrial fibrillation: Status: Chronic (4) Insulin dependent type 2 diabetes mellitus: Status: Acute Discharge Plan Disposition Patient Disposition: Home Condition: Improving Discharge Details Reason For Visit: Acute Hypoxic and Hypercapnic Resp Failure,CHF Exa Admit Date/Time: 05/26/25 22:28 Admit Provider: Rodrigo Cast Attending Provider: Rodrigo Cast Primary Care Provider: Renetta,[facility] Course Hospital Course: Diagnosis at Discharge: * Acute Respiratory Failure with Hypoxia and Hypercapnia * Acute Exacerbation of Congestive Heart Failure * Atrial Fibrillation * Insulin-dependent Type 2 Diabetes Mellitus Clinical Course: The patient, a 62-year-old gentleman with a history of congestive heart failure, atrial fibrillation, and insulin-dependent type 2 diabetes mellitus, presented to the emergency department with shortness of breath, progressive over the past several days. He also noted lower extremity edema. Upon arrival, the patient's oxygen saturation was in the low 80s on room air and was placed on CPAP, which led to improvement. A chest X-ray showed pulmonary edema, and laboratory work revealed an elevated proBNP of 2347 and elevated CO2 on a VBG (70). The patient received 80 mg IV Lasix with good urine output and was also given IV Solu-Medrol for a presumed COPD exacerbation, though there was no history of COPD. The patient was admitted for management of acute hypoxic and hypercapnic respiratory failure secondary to an acute exacerbation of congestive heart failure. Plan at Discharge: 1. Acute Respiratory Failure with Hypoxia and Hypercapnia: * Likely secondary to acute exacerbation of congestive heart failure with pulmonary and lower extremity edema. * Continue oxygen therapy as needed, pulse oximetry monitoring. * Follow-up with PCP in 5-7 days for ongoing management. 2. Acute Exacerbation of Congestive Heart Failure: * IV Lasix 40 mg daily; continue to follow strict I&Os. * Monitor weight and edema. * Follow-up with PCP for CHF management. 3. Atrial Fibrillation: * Continue home metoprolol tartrate 50 mg PO BID. * Continue home rivaroxaban 20 mg PO daily. 4. Insulin-Dependent Type 2 Diabetes Mellitus: * Continue home Ozempic, Humalog, and metformin. * Follow-up with PCP for diabetes management. Medications at Discharge: * Atorvastatin (Lipitor): 10 mg orally daily * Furosemide (Lasix): 40 mg orally daily * Metoprolol Tartrate: 50 mg orally BID * Rivaroxaban: 20 mg orally daily Follow-up: * Primary Care Physician: 5-7 days for reevaluation, including follow-up on heart failure management, diabetes, and medication adjustments. * Echocardiogram: Normal LV wall thickness; EF 55-60% Summary: The patient was admitted for acute respiratory failure due to an acute exacerbation of congestive heart failure. After receiving IV Lasix and CPAP, the patient's condition improved, and he is now stable for discharge with close follow-up. Diabetic medications were held during hospitalization due to acute illness, and sliding scale insulin was initiated. Blood pressure should be monitored closely post-discharge. BMP ordered for 5-7 days to assess electrolytes. Recommendations for Follow Up Recommended tests to be ordered by follow up provider: BMP ordered for 5-7 days; please follow up on results Home Meds and New Rx's Prescriptions: New furosemide [Lasix] 40 mg tablet 40 mg PO DAILY Qty: 30 0RF Continued Xarelto 20 mg tablet 20 mg PO DAILY Rx Instructions: must administer with evening meal atorvastatin [Lipitor] 10 mg tablet 20 mg PO DAILY metoprolol tartrate 50 mg tablet 50 mg PO BID Ozempic 0.25 mg or 0.5 mg (2 mg/3 mL) pen injector 2 mg subcut QWEEK metformin 1,000 mg tablet 1,000 mg PO BID divalproex [Depakote] 250 mg tablet,delayed release (DR/EC) 750 mg PO AC Rx Instructions: morning gabapentin 600 mg tablet 600 mg PO DAILY spironolactone [Aldactone] 25 mg tablet 25 mg PO DAILY quetiapine [Seroquel] 50 mg tablet 50 mg PO ONCE HS Rx Instructions: administer on day 1 of therapy aspirin 81 mg capsule 81 mg PO DAILY divalproex [Depakote] 250 mg tablet,delayed release (DR/EC) 1,000 mg PO HS cyanocobalamin (vitamin B-12) 1,000 mcg lozenge 1,000 mcg sublingual BID Discharge Instructions Instructions: Furosemide Additional Instructions: Medications * Furosemide (Lasix) 40 mg ? Take 1 tablet by mouth once daily in the morning. * This medication helps your body get rid of excess fluid. * Take it in the morning to reduce nighttime urination. * Continue your home medications Diet * Low-sodium diet: Limit sodium intake to <2 grams per day. * Avoid processed foods, canned soups, and restaurant meals that are high in salt. * Fluid restriction if advised (typically 1.5?2 liters/day). Weight Monitoring * Weigh yourself every morning after urinating and before eating. * Keep a daily weight log. * Notify your provider if you gain more than 2?3 pounds in 1 day or 5 pounds in 1 week. Activity * Light activity as tolerated. * Avoid strenuous exertion until cleared by your provider. * Elevate legs when sitting to help reduce swelling. Signs & Symptoms to Watch For Call your provider or go to the ED if you experience: * Increased shortness of breath, especially when lying down * Swelling in legs, ankles, or abdomen * Rapid weight gain * Fatigue or weakness * Chest pain * New or worsening cough, especially at night Follow-Up * Follow up with your primary care provider or instructional coordinator within 3?7 days after discharge. * Lab monitoring to check electrolytes and kidney function, especially while taking diuretics; an order has been placed for 5-7 days from today. Other Instructions * Take medications exactly as prescribed. * Avoid NSAIDs (e.g., ibuprofen, naproxen) as they may worsen heart failure. * Avoid alcohol and tobacco. Referrals: Hortencia Sanford MD [ [facility] ST[facility]FF PHYSICIAN, Medicine] Referral Note: Tdoc - no PCP 1 week post hospitalization for CHF exacerbation - lasix 40 mg daily started. BMP ordered and should be followed up. Activity:: Activity as Tolerated Equipment/Supplies:: No Equipment Needed Diet:: As Tolerated Discharge Orders Discharge Orders: Discharge Order (Routine); Ordered 05/28/25 Ordered By: Lisa Lua Other Ambulatory Orders: Basic Metabolic Panel (Routine) Timeframe: 1 Week Facility: [facility] - Location: Laboratory Outpatient - [place] Ordered By: Lisa Lua Discharge Data Discharge Date/Time-TO BE ENTERED AT DEPARTURE: 05/28/25 14:30 Discharge Comment: FollowUp scheduled for 06/06 @[facility] DS: Summary Time Spent with Patient providing and/or coordinating discharge services: Greater than 30 minutes Status at Discharge Functional status at discharge: independent ambulation Overall status at discharge: patient is back to baseline Mental Status: mental status grossly normal Speech and Movement: speech and movement normal Mood: congruent mood Affect: normal affect Quality:SDOH Health Related Social Needs: Health related social needs inadequate housing lonely/ isolated Health related social needs details . Health related social needs details: . Exam Const General: no acute distress Orientation: alert HENMT Head: normal to inspection Ears: external ears normal General nose exam: external nose normal Mouth: moist mucous membranes Eyes General: appearance normal, both eyes and all related structures Neck Neck: normal visual inspection Resp Auscultation: diminished lung sounds Cardio Jugular venous pressure: no JVD Rate: regular rate GI Palpation: soft and nontender Skin General skin exam: no rashes or lesions noted Neuro General: patient alert and patient oriented x3 Extrem General: edema Psych Mental Status: mental status grossly normal Speech and Movement: speech and movement normal Mood: congruent mood Affect: normal affect DS: Data Vitals/I&O Vitals and I&O: Vital Signs Temperature 36.7 C 05/28/25 07:45 Temperature Source Temporal Artery Scan 05/28/25 07:45 Pulse 68 05/28/25 11:02 Pulse 80 05/28/25 09:00 Respiratory Rate 19 05/28/25 11:02 Respiratory Effort Short of Breath, Labored 05/26/25 21:22 Respiratory Depth Normal 05/26/25 21:22 Respiratory Pattern Normal 05/26/25 21:22 Blood Pressure 143/86 H 05/28/25 08:04 Blood Pressure Mean 100 05/28/25 08:04 Blood Pressure Position Sitting 05/26/25 21:22 Pulse Oximetry 92 05/28/25 11:02 Oxygen Delivery Method Room Air 05/28/25 11:02 Oxygen Flow Rate 0 05/28/25 11:02 Fraction of Inspired Oxygen (FIO2) 35 05/27/25 04:21 Pain Level 6 05/27/25 04:04 Comment CPAP 05/27/25 03:01 Intake & Output 05/27/25 05/27/25 05/28/25 11:59 23:59 11:59 Intake Total 430 420 / 430 Output Total 2450 / 4150 1700 / 4150 1825 / 1825 Balance -2440 / -3720 -1280 / -3720 -1825 / -1825 Weight 146 kg 144.9 kg Intake: IV Oral 400 / 400 Output: Urine 2450 / 4150 1700 / 4150 1825 / 1825 Other: Urine Color Yellow Yellow Urine Appearance Clear Clear Urine Odor Normal None Comment in january was peeing blood for about 10 days Stool Size Moderate Stool Characteristics Formed Data Completed and Pending Labs on day of discharge: Labs from last 24 hours 05/28/25 05/27/25 05:50 14:09 WBC 10.58 RBC 3.65 L Hgb 10.7 L Hct 33.7 L MCV 92 MCH 29.3 MCHC 31.8 L RDW 16.1 H Plt Count 214 MPV 9.7 Immature Gran % 1.2 Neutrophils % 75.9 Lymphocytes % 12.9 Monocytes % 9.7 Eosinophils % 0.0 Basophils % 0.3 Nucleated RBC % 0.0 Absolute Neutrophils 8.03 H Absolute Lymphocytes 1.36 Absolute Monocytes 1.03 H Absolute Eosinophils 0.00 Absolute Basophils 0.03 VBG pH 7.37 VBG pCO2 53 H VBG pO2 47 VBG HCO3 31 H VBG Total CO2 28 VBG O2 Saturation 81 VBG Base Excess 5 H Sodium 139 Potassium 5.0 Chloride 100 Carbon Dioxide 32.1 H Anion Gap 6.9 BUN 43 H Creatinine 1.0 Est GFR (CKD-EPI 2020) 81.98 Glucose 185 H Calcium 8.9 Magnesium 1.9 PFSH All Active Problems (Updated 05/26/25 @ 22:41 by Kiran Gaspar MD) Insulin dependent type 2 diabetes mellitus (Acute) Atrial fibrillation (Chronic) Acute exacerbation of congestive heart failure (Acute) Acute respiratory failure with hypoxia and hypercapnia (Acute) Social History Smoking/Tobacco Use Status: Never Smoking risk assessment performed?: Yes Housing: house Time Spent with Patient Time Spent with Patient: 45-69 minutes Time was spent: preparing to see the patient(eg.review tests), ordering me dications,tests, procedures, referring, communicating with other health direct care specialist, indepentently interpreting results, counseling the patient and care coordination
--- NOTE | 2025-05-28 16:43 | PDOC.CMDIS ---
Date of service: 05/28/25 Time of Service: 16:43 LACE Index Scoring Tool Questions: Length of Stay (in days): 2 Was the patient admitted via the E.D.?: Yes Comorbidities: Diabetes w/o Complication and Congestive Heart Failure E.D. Visits: 0 Answers: Total Score: 8 Risk of Readmission: Low Risk Care Management Discharge Plan Reason for Hospitalization: Acute hypoxic and hypercapnic respiratory failure Discharge Plan: Cecil returned home today with no new services. His drove him home via private vehicle. He will follow up with the loss prevention research engineer provider ([facility]), and his discharge plan of care. He was happy to be going home. Patient/Family Education Needs: Review discharge instructions and limitations, discussion of self care needs including ask me three. SDOH Health Related Social Needs: Health related social needs inadequate housing lonely/isolated Health related social needs details . Health related social needs details: .
== END 2025-05-28 14:30 | disposition home or self-care (01) | DRG 291 ==
LOC: ER 23:13 → EDHOLD 23:40 → ICU 05-27 14:16
PROVIDERS: Admitting Provider Family Medicine; Emergency Provider Emergency Medicine; Responsible Provider Nurse Practitioner Family; Visit Provider Family Medicine
DX: J96.01 Acute respiratory failure with hypoxia (principal); J96.02 Acute respiratory failure with hypercapnia; I50.9 Heart failure, unspecified; I48.91 Unspecified atrial fibrillation; E11.9 Type 2 diabetes mellitus without complications; Z79.4 Long term (current) use of insulin; Z68.43 Body mass index [BMI] 50.0-59.9, adult; Z59.10 Inadequate housing, unspecified; Z79.01 Long term (current) use of anticoagulants; Z79.85 Long-term (current) use of injectable non-insulin antidiabetic drugs; F32.A Depression, unspecified; E66.9 Obesity, unspecified; Z79.84 Long term (current) use of oral hypoglycemic drugs; R45.89 Other symptoms and signs involving emotional state
CPT/HCPCS: 00123; 36415; 80048; 80053; 82805; 85027; 87637; 93005; 93306; 94640; 94761; 96374; 96375; 99285; 71045; 80164; 83735; 83880; 84484; 85025; 85610; 85730; 93010; 94660; 94760; 99223; 99232; 99239; J1815; J1938; J2919; J3475; J7613; J7620

== ENCOUNTER 2025-06-04 15:43 | Outpatient (REF) | payer MEDICARE, BC, SELFPAY ==
[2025-06-04 17:42] LABS: ALT 21 U/L (16-63); AST 21 U/L (15-37); Albumin 3.4 g/dL (3.4-5.0); Alkaline Phosphatase 60 U/L (46-116); Anion Gap 6.8 mmol/L (3-11); BUN 50 mg/dL (7-18); Bilirubin, Total 0.4 mg/dL (0.2-1.0); CO2 32.2 mmol/L (21.0-32.0); Calcium 9.0 mg/dL (8.5-10.1); Chloride 104 mmol/L (98-107); Estimated GFR 50.40 (mL/min/1.73m2); Glucose 166 mg/dL (74-106); Potassium 5.0 mmol/L (3.5-5.1); Sodium 143 mmol/L (136-145); Total Protein 7.2 g/dL (6.4-8.2)
== END 2025-06-04 15:44 | disposition home or self-care (01) ==
LOC: NCHCN 15:43
PROVIDERS: Visit Provider Family Medicine
DX: I50.9 Heart failure, unspecified (principal)
CPT/HCPCS: 80053

== ENCOUNTER 2025-07-11 17:40 | Outpatient (REF) | payer MEDICARE, SELFPAY ==
[2025-07-11 15:22] LABS: Glucose Negative (Negative)
[2025-07-11 15:38] LABS: C & S Indicated? No; WBC 0-2 HPF (0-5)
[2025-07-11 17:32] LABS: Anion Gap 7.1 mmol/L (3-11); BUN 27 mg/dL (7-18); CO2 29.9 mmol/L (21.0-32.0); Calcium 9.1 mg/dL (8.5-10.1); Chloride 105 mmol/L (98-107); Estimated GFR 65.87 (mL/min/1.73m2); Glucose 201 mg/dL (74-106); Lipase 119 U/L (<78); Potassium 5.6 mmol/L (3.5-5.1); Sodium 142 mmol/L (136-145)
[2025-07-11 17:45] LABS: Calculated LDL 60 mg/dL (<100); Cholesterol 127 mg/dL (<200); HDL Cholesterol 39 mg/dL (>or=40); Triglyceride 142 mg/dL (<150)
[2025-07-11 23:01] LABS: PSA, Diagnostic 0.7 ng/mL (<=4.5)
== END 2025-07-11 17:41 | disposition home or self-care (01) ==
LOC: NCHCN 17:40
PROVIDERS: PCP Family Medicine; Visit Provider Family Medicine
DX: E11.69 Type 2 diabetes mellitus with other specified complication (principal); R31.9 Hematuria, unspecified; N28.9 Disorder of kidney and ureter, unspecified
CPT/HCPCS: 80048; 80061; 83690; 81003; 81015; 84153

== ENCOUNTER 2025-07-18 09:43 | Inpatient (IN) | payer MEDICARE, BC, SELFPAY ==
[2025-07-18] VITALS (29 sets, daily range): BP systolic 77–133; BP diastolic 56–86; PULSE 66–121; RESP 16–29; TEMP 36.6–37.2; O2SAT 87–93
--- NOTE | 2025-07-18 09:30 | RT.EKG_ITS ---
APPROVED REPORT Exam: Resting ECG Reason for Exam: weakness, afib Patient Location: E HR:105 bpm ECG Measurements Heart Rate 105 AXIS ID [id number] P [id number] QRSd 143 QRS -9 QT 330 T 6 QTc 437 Conclusion Atrial fibrillation...V-rate 74-134, irreg A-activity Right bundle branch block...QRSd>120, terminal axis(90,270) Inferior infarct, old...Q >35mS, II III aVF
--- NOTE | 2025-07-18 10:33 | DI.RAD_ITS ---
Exam(s) XR CHEST 2V PA LATERAL EXAM: XR CHEST 2V PA LATERAL CLINICAL HISTORY: shortness of breath TECHNIQUE: 2D digital imaging was performed. Two views. COMPARISON: CR,XR XR PORTABLE CHEST AP from 05/26/2025 FINDINGS: HEART: Normal size. Aorta: Not dilated. PULMONARY VASCULATURE: Normal. MEDIASTINUM: Unremarkable. LUNGS: Clear. PLEURAL SPACE: No pleural effusion or pneumothorax. BONE:Unremarkable for age. SOFT TISSUES: Unremarkable. IMPRESSION: No acute abnormality. DATA REPOSITORY: RADIATION DOSE DELIVERED:
[2025-07-18 10:36] LABS: Abs Immature Grans 0.06 10^3/uL (0.0-0.06); HCT 39.7 % (40.0-50.0); HGB 12.7 g/dL (13.5-17.5); Immature Grans % 1.2 %; MCH 29.5 pg (27.0-33.0); MCHC 32.0 % (32.0-36.0); MCV 92 fL (80-95); MPV 8.9 fL (8.0-11.0); Platelet Count 179 10^3/uL (130-400); RBC 4.31 10^6/uL (4.36-5.78); RDW 14.8 % (11.8-14.1); RDW-SD 50.9 fL; WBC 5.04 10^3/uL (4.4-10.8)
--- NOTE | 2025-07-18 10:45 | DI.CT_ITS ---
Exam(s) CT BRAIN NECK CTA EXAM: CT BRAIN NECK CTA CLINICAL HISTORY: left sided weakness. TECHNIQUE: Imaging Protocol: Axial CT angiography was performed with multi- slice acquisition and multi-planar and MIP reconstructions. CONTRAST MATERIAL: Intravenous: Omnipaque 350 Contrast volume:70 ml COMPARISON: No exams were available for comparison FINDINGS: CT Head W/O and W contrast: Ventricles and Extra axial spaces: Normal in size and morphology for degree of atrophy. Hemorrhage: None. Cerebral parenchyma: No evidence of acute infarct or mass. Mild atrophy. Midline shift: None. Brainstem/Cerebellum: No acute findings.. Calvarium: Normal. Visualized Paranasal sinuses/Mastoids: Complete opacification of the left maxillary sinus. Mild mucous retention at the floor of the right maxillary sinus. Soft Tissues: Unremarkable. Enhancement: Normal. Venous sinuses are patent. CTA Brain W: Internal Carotid Arteries: Mild calcification. Right: No aneurysm, occlusion or significant stenosis. Left: No aneurysm, occlusion or significant stenosis. Middle Cerebral Arteries: Right: No aneurysm, occlusion or significant stenosis. Left: No aneurysm, occlusion or significant stenosis. Anterior Cerebral Arteries: Right: No aneurysm, occlusion or significant stenosis. Left: No aneurysm, occlusion or significant stenosis. Posterior cerebral Arteries: Right: No aneurysm, occlusion or significant stenosis. Left: No aneurysm, occlusion or significant stenosis. Vertebral Arteries: Right: No aneurysm, occlusion or significant stenosis. Left: No aneurysm, occlusion or significant stenosis. Basilar Artery: No aneurysm, occlusion or significant stenosis. CTA Neck W: Aorta: Normal diameter. Minimal atherosclerotic changes. Aberrant right subclavian artery. Common Carotid: Minimal plaque at the bulbs. Right: No dissection, occlusion or significant stenosis. Left: No dissection, occlusion or significant stenosis. External Carotid: Right: No dissection, occlusion or significant stenosis. Left: No dissection, occlusion or significant stenosis. Internal Carotid: Right: No dissection, occlusion or significant stenosis. Left: No dissection, occlusion or significant stenosis. Vertebral Artery: Right: No dissection, occlusion or significant stenosis. Left: No dissection, occlusion or significant stenosis. Lung Apices: No acute findings. Bones: No acute abnormality. Mild degenerative changes of the cervical spine. Soft Tissues: Normal. IMPRESSION: 1. CTA brain: Unremarkable CTA examination of the [place]. 2. Head CT: No acute abnormality. 3. CTA neck: Minimal atherosclerotic changes. No evidence of occlusion, significant stenosis or dissection. RADIATION DOSE DELIVERED: 2,761.94mGy.cm Total DLP DATA REPOSITORY: All CT scans at this facility are submitted to the National Radiology Data Registry (NRDR) Dose Index Registry (DIR) with the [employer] (ACR). RADIATION OPTIMIZATION: All CT scans at this facility use at least one of these dose optimization techniques: automated exposure control; mA and/or kV adjustment per patient size (includes targeted exams where dose is matched to clinical indication); or iterative reconstruction.
[2025-07-18 11:00] LABS: ALT 36 U/L (16-63); AST 39 U/L (15-37); Albumin 3.4 g/dL (3.4-5.0); Alkaline Phosphatase 50 U/L (46-116); Anion Gap 7.7 mmol/L (3-11); BUN 31 mg/dL (7-18); Bilirubin, Total 0.5 mg/dL (0.2-1.0); CO2 30.3 mmol/L (21.0-32.0); Calcium 9.2 mg/dL (8.5-10.1); Chloride 101 mmol/L (98-107); Estimated GFR 54.75 (mL/min/1.73m2); Glucose 196 mg/dL (74-106); Magnesium 1.3 mg/dL (1.8-2.4); NT-proBNP 1995 pg/mL (<300); Potassium 5.0 mmol/L (3.5-5.1); Sodium 139 mmol/L (136-145); Total Protein 7.6 g/dL (6.4-8.2); Troponin I 18 ng/L (<or=76)
[2025-07-18] MEDS: ACETAMINOPHEN 1,000 MG/100 ML BAG 400 MG IVPB (11:03)
--- NOTE | 2025-07-18 11:17 | W.ED.GENAD ---
Discharge Plan Disposition Condition: Good Discharge Details Chief Complaint: SOB Admit Date/Time: 07/18/25 12:05 Admit Provider: Rodrigo Cast Attending Provider: Rodrigo Cast Primary Care Provider: Unknown,Unknown ED Provider: Fernando Izaguirre Discharge Instructions Activity:: Activity as Tolerated Equipment/Supplies:: No Equipment Needed Diet:: As Tolerated Discharge Orders Discharge Orders: Discharge Order (Routine); Ordered 07/20/25 Ordered By: Rodrigo Cast Discharge Data Discharge Date/Time-TO BE ENTERED AT DEPARTURE: 07/18/25 13:07 HPI General Mode of arrival: ambulatory. Date/Time Provider Initiated Documentation: 07/18/25 09:55. Limitations to Documentation: no limitations. Information obtained by: patient and family. HPI Narrative: HISTORY OF PRESENT ILLNESS 70-year-old male with CHF, A-fib, diabetes, presenting with worsening CHF symptoms: leg swelling, weakness, and dyspnea. Accompanied by . Referred to ED by PCP due to concerns about heart rate, perspiration, and dyspnea. Hospitalized in 05/2025 for CHF, prescribed furosemide, initially effective. Follow-up visit a week ago showed significant leg swelling and weeping. Completed furosemide course, resumed it as recommended, but condition worsened over the past week. Increased urination except one night of anuria. Difficulty walking and maintaining balance. BP spiked to 188/112, now stabilized. Last night, frequent urination but unable to pass urine, appeared confused, difficulty getting out of bed, lack of muscle control. General weakness, especially in legs, hands unaffected. Used wheelchair today. Two months ago, could climb stairs with frequent stops. Knee pain worsened, making walking difficult. Feels well lying down but winded upon exertion. No pain. Unsure about cardiac catheterization. Left-handed. Slightly slurred speech today, unusual for him, slurs when tired. On Xarelto consistently, enalapril added last week. Prior to current visit, experienced hematuria, resolved spontaneously. PCP found no cause. Upcoming urology appointment. Related Data Home Medications ?Medication ?Instructions ?Recorded ?Confirmed atorvastatin 10 mg tablet (Lipitor) 20 mg PO DAILY 05/26/25 07/18/25 metformin 1,000 mg tablet 500 mg PO BID 05/26/25 07/18/25 metoprolol tartrate 50 mg tablet 50 mg PO BID 05/26/25 07/18/25 rivaroxaban 20 mg tablet (Xarelto) 20 mg PO DAILY 05/26/25 07/18/25 semaglutide 0.25 mg or 0.5 mg (2 2 mg subcut QWEEK 05/26/25 07/18/25 mg/3 mL) subcutaneous pen injector (Ozempic) aspirin 81 mg capsule 81 mg PO DAILY 05/27/25 07/18/25 cyanocobalamin (vitamin B-12) 1,000 mcg sublingual BID 05/27/25 07/18/25 1,000 mcg sublingual lozenge divalproex 250 mg tablet,delayed 1,000 mg PO HS 05/27/25 07/18/25 release (Depakote) divalproex 250 mg tablet,delayed 750 mg PO .am 05/27/25 07/18/25 release (Depakote) gabapentin 600 mg tablet 600 mg PO HS 05/27/25 07/18/25 quetiapine 50 mg tablet (Seroquel) 50 mg PO HS 05/27/25 07/18/25 spironolactone 25 mg tablet 25 mg PO DAILY 05/27/25 07/18/25 (Aldactone) bupropion HCl 100 mg tablet,12 hr 100 mg PO BID 07/18/25 07/18/25 sustained-release diclofenac sodium 1 % topical gel 4 g topical TID PRN 07/18/25 07/18/25 (Voltaren Arthritis Pain) enalapril maleate 2.5 mg tablet 2.5 mg PO HS 07/18/25 07/18/25 sertraline 100 mg tablet 100 mg PO DAILY 07/18/25 07/18/25 furosemide 40 mg tablet (Lasix) 40 mg PO BID #90 tabs 07/20/25 Previous Rx's ?Medication ?Instructions ?Recorded furosemide 40 mg tablet (Lasix) 40 mg PO BID #90 tabs 07/20/25 Allergies Allergy/AdvReac Type Severity Reaction Status Date / Time No Known Allergies Allergy Unverified 07/18/25 09:51 General Stated Complaint: SOB UMESH: 3 Exam Const General: cooperative and no acute distress HENMT Mouth: moist mucous membranes Eyes Conjunctivae: normal conjunctivae Sclera: normal sclerae Neck Neck: trachea midline Resp Auscultation: clear to auscultation bilaterally, no rales, no rhonchi and no wheezes Cardio Rate: tachycardic Rhythm: abnormal rhythm irregularly irregular GI Palpation: soft, not firm, no guarding, no masses, not rigid and nontender Skin General skin exam: no rashes or lesions noted Neuro General: patient alert, patient awake and tone normal Speech: abnormal speech slurred Motor: other (3/5 LLE, 4/5 RLE, 4/5 bl UEs) Extrem General: edema Laterality: bilateral (1+ pitting bilateral) Psych Appearance: grossly normal Mental Status: mental status grossly normal Course Vital Signs Vital signs: Vital Signs Pulse 112 H 07/18/25 09:46 Pulse Oximetry 90 L 07/18/25 09:46 Temperature 37.2 C 07/18/25 09:47 Temperature Source Oral 07/18/25 09:47 Pulse 100 H 07/18/25 10:18 Pulse 111 H 07/18/25 10:10 Respiratory Rate 28 H 07/18/25 10:20 Respiratory Effort Short of Breath, Labored 07/18/25 10:20 Respiratory Depth Normal 07/18/25 10:20 Respiratory Pattern Tachypnea 07/18/25 10:20 Blood Pressure 105/60 07/18/25 10:18 Blood Pressure Mean 65 07/18/25 10:18 Blood Pressure Position Sitting 07/18/25 09:47 Pulse Oximetry 92 07/18/25 10:10 Oxygen Delivery Method Room Air 07/18/25 09:47 Oxygen Flow Rate 0 07/18/25 09:47 Pain Level 0 07/18/25 09:47 Lab/Test Results Lab/Test Results: Laboratory Tests Range/Units 07/18/25 10:15 WBC (4.4-10.8) 10^3/uL 5.04 RBC (4.36-5.78) 10^6/uL 4.31 L Hgb (13.5-17.5) g/dL 12.7 L Hct (40.0-50.0) % 39.7 L MCV (80-95) fL 92 MCH (27.0-33.0) pg 29.5 MCHC (32.0-36.0) % 32.0 RDW (11.8-14.1) % 14.8 H Plt Count (130-400) 10^3/uL 179 MPV (8.0-11.0) fL 8.9 Immature Gran % % 1.2 Neutrophils % % 68.0 Lymphocytes % % 13.5 Monocytes % % 16.5 Eosinophils % % 0.2 Basophils % % 0.6 Nucleated RBC % (0.0-0.3) % 0.0 Absolute Neutrophils (1.2-6.7) 10^3/uL 3.43 Absolute Lymphocytes (1.2-3.4) 10^3/uL 0.68 L Absolute Monocytes (0.1-0.8) 10^3/uL 0.83 H Absolute Eosinophils (0.0-0.7) 10^3/uL 0.01 Absolute Basophils (0.0-0.2) 10^3/uL 0.03 Sodium (136-145) mmol/L 139 Potassium (3.5-5.1) mmol/L 5.0 Chloride (98-107) mmol/L 101 Carbon Dioxide (21.0-32.0) mmol/L 30.3 Anion Gap (3-11) mmol/L 7.7 BUN (7-18) mg/dL 31 H Creatinine (0.70-1.30) mg/dL 1.4 H Est GFR (CKD-EPI 2020) (mL/min/1.73m2) 54.75 Glucose (74-106) mg/dL 196 H Calcium (8.5-10.1) mg/dL 9.2 Magnesium (1.8-2.4) mg/dL 1.3 L Total Bilirubin (0.2-1.0) mg/dL 0.5 AST (15-37) U/L 39 H ALT (16-63) U/L 36 Alkaline Phosphatase (46-116) U/L 50 Troponin I (<or=76) ng/L 18 NT-Pro-B Natriuret Pep (<300) pg/mL 1995 H Total Protein (6.4-8.2) g/dL 7.6 Albumin (3.4-5.0) g/dL 3.4 Medical Decision Making 70-year-old ASSESSMENT AND PLAN Initial Assessment: SOB, leg swelling, generalized weakness, elevated heart rate. History of A-fib and recent CHF hospitalization. Differential Diagnosis: - CHF: SOB, leg swelling, generalized weakness, elevated BNP. Plan: Lasix IV, hospitalization, cardiac echo. - A-fib: History of A-fib, elevated heart rate. Plan: Continue Xarelto. - Stroke: Subtle left-sided weakness. Plan: Brain imaging. - Hypomagnesemia: Magnesium 1.3. Plan: Magnesium 2 g IV. - Hematuria: History of hematuria in January, no kidney stones. Plan: Follow-up with urology. ED Course: - Reviewed outside hospital records and PCP note. - Labs: Elevated BNP 1994, creatinine 1.4, initial troponin negative, delta troponin pending, magnesium 1.3. - CT head with CTA neck: Minimal atherosclerotic changes, no occlusion, significant stenosis, or dissection. - Administered magnesium 2 g IV. - Administered Lasix IV. - I spoke with [employer] and attempting to arrange for limited echocardiogram today Final Assessment: 70-year-old male with multimedical problems including history of CHF, diabetes, chronic A-fib on anticoagulation, here with dyspnea on exertion, bilateral lower extremity edema and generalized weakness. Symptoms persisting despite outpatient diuretic. Sent by PCP. Patient is mildly tachycardic and in atrial fibrillation. Blood pressure low normal. He does have significant lower extremity pitting edema. Suspect third spacing. Patient also with subtly worse left-sided weakness compared to right more appreciable in the lower extremity. Of note patient is left-handed. CTA of the head and neck shows no acute abnormality. Labs reviewed and hypomagnesemia noted which may be contributing to weakness. Patient receiving magnesium supplementation. Plan for hospitalization for further diagnostic workup and treatment. Clinical Impression: - CHF - A-fib - Left-sided weakness - Hypomagnesemia Disposition: - Admission to hospital for further monitoring and treatment. - Follow-up: Urology appointment when returning to [place]. This document was written with the assistance of PEDRO Alberto. The patient consented to its use. Lab Data Labs: Laboratory Tests Range/Units 07/18/25 07/18/25 10:15 11:33 WBC (4.4-10.8) 10^3/uL 5.04 RBC (4.36-5.78) 10^6/uL 4.31 L Hgb (13.5-17.5) g/dL 12.7 L Hct (40.0-50.0) % 39.7 L MCV (80-95) fL 92 MCH (27.0-33.0) pg 29.5 MCHC (32.0-36.0) % 32.0 RDW (11.8-14.1) % 14.8 H Plt Count (130-400) 10^3/uL 179 MPV (8.0-11.0) fL 8.9 Immature Gran % % 1.2 Neutrophils % % 68.0 Lymphocytes % % 13.5 Monocytes % % 16.5 Eosinophils % % 0.2 Basophils % % 0.6 Nucleated RBC % (0.0-0.3) % 0.0 Absolute Neutrophils (1.2-6.7) 10^3/uL 3.43 Absolute Lymphocytes (1.2-3.4) 10^3/uL 0.68 L Absolute Monocytes (0.1-0.8) 10^3/uL 0.83 H Absolute Eosinophils (0.0-0.7) 10^3/uL 0.01 Absolute Basophils (0.0-0.2) 10^3/uL 0.03 Sodium (136-145) mmol/L 139 Potassium (3.5-5.1) mmol/L 5.0 Chloride (98-107) mmol/L 101 Carbon Dioxide (21.0-32.0) mmol/L 30.3 Anion Gap (3-11) mmol/L 7.7 BUN (7-18) mg/dL 31 H Creatinine (0.70-1.30) mg/dL 1.4 H Est GFR (CKD-EPI 2020) (mL/min/1.73m2) 54.75 Glucose (74-106) mg/dL 196 H Calcium (8.5-10.1) mg/dL 9.2 Magnesium (1.8-2.4) mg/dL 1.3 L Total Bilirubin (0.2-1.0) mg/dL 0.5 AST (15-37) U/L 39 H ALT (16-63) U/L 36 Alkaline Phosphatase (46-116) U/L 50 Troponin I (<or=76) ng/L 18 17 NT-Pro-B Natriuret Pep (<300) pg/mL 1995 H Total Protein (6.4-8.2) g/dL 7.6 Albumin (3.4-5.0) g/dL 3.4 Quality:SDOH Health Related Social Needs: Health related social needs inadequate housing lonely/isolated Health related social needs details . PFSH All Active Problems (Updated 07/21/25 @ 00:03 by YURY URBAN) Non-insulin dependent type 2 diabetes mellitus (Acute) Acute exacerbation of congestive heart failure (Acute) Acute respiratory failure with hypoxia and hypercapnia (Acute) Medical History Insulin dependent type 2 diabetes mellitus Atrial fibrillation Social History Smoking/Tobacco Use Status: Never Smoking risk assessment performed?: Yes Housing: house
[2025-07-18] MEDS: Omnipaque 350 MG/ML 500 ML BTL-Imaging package IJ (11:37)
[2025-07-18 11:59] LABS: Troponin I 17 ng/L (<or=76)
[2025-07-18 12:04] LABS: TSH (W/Ref FT4) 1.70 uIU/mL (0.36-3.74)
[2025-07-18] MEDS: MAGNESIUM SULFATE 2 GM/50 ML BAG IV_INF (12:09)
[2025-07-18] MEDS: Furosemide 20 MG/2 ML VIAL IVP ×2 (12:09→17:00)
[2025-07-18 14:21] LABS: Troponin I 19 ng/L (<or=76)
--- NOTE | 2025-07-18 14:36 | W.PM.HP.N ---
Date of service: 07/18/25 Time of Service: 14:36 Assessment and Plan Assessment and plan (1) Acute exacerbation of congestive heart failure: Status: Acute Assessment and plan: - Patient presents with ongoing bilateral lower extremity edema despite being restarted on 20 mg p.o. twice daily Lasix - proBNP 1994 - Not requiring oxygen at this time, and no pulmonary edema seen on chest x-ray - Status post 20 mg IV Lasix in the emergency department, will continue twice daily - Strict I's and O's - Follow-up a.m. BMP - Continue home spironolactone 25 mg daily - Continue home aspirin and statin (2) Atrial fibrillation: Assessment and plan: - Continue home 50 mg metoprolol tartrate twice daily, Xarelto (3) Non-insulin dependent type 2 diabetes mellitus: Status: Acute Assessment and plan: - Continue home metformin History of Present Illness History of Present Illness Chief Complaint: Lower extremity edema Narrative: 70-year-old male with past medical history of congestive heart failure, A-fib, IDDM presents to the emergency department with worsening bilateral lower extremity edema. Patient was sent to the emergency department by his PCP for concerns for elevated heart rate worsening dyspnea. Patient was hospitalized in May 2025 for heart failure for which she was prescribed Lasix which was effective. At some point it was discontinued but when he followed up with his PCP about a week ago noted significant lower extremity edema with weeping at that time he was restarted on 20 mg twice daily of Lasix. However, presented back to the emergency department as it did not appear to be improving and noted a drop-off in urine output. She denies any headache, lightheadedness, dizziness, chest pain, shortness of breath. In the emergency department the patient was noted as having slightly elevated blood pressure of 188/112 which spontaneously improved, otherwise had normal vital signs, and physical exam was remarkable for significant bilateral lower extremity edema. CBC and CMP were unremarkable, chest x-ray showed no acute abnormalities, and head neck CTA was also without acute findings, though patient's labs were significant for elevated proBNP of 1994. While in the emergency department the patient was given 20 mg of IV Lasix and emergency room physician paged hospitalist for admission for patient with acute exacerbation of congestive heart failure. Review of Systems All systems reviewed & are unremarkable except as noted in HPI and below PFSH All Active Problems (Updated 07/18/25 @ 14:43 by Rodrigo Cast MD) Non-insulin dependent type 2 diabetes mellitus (Acute) Acute exacerbation of congestive heart failure (Acute) Acute respiratory failure with hypoxia and hypercapnia (Acute) Medical History Insulin dependent type 2 diabetes mellitus Atrial fibrillation Social History Smoking/Tobacco Use Status: Never Smoking risk assessment performed?: Yes Housing: house Meds Allergies and Home Medications Allergies Allergy/AdvReac Type Severity Reaction Status Date / Time No Known Allergies Allergy Unverified 07/18/25 09:51 Home Medications ?Medication ?Instructions ?Recorded ?Confirmed ?Type atorvastatin 10 mg tablet (Lipitor) 20 mg PO DAILY 05/26/25 07/18/25 History metformin 1,000 mg tablet 500 mg PO BID 05/26/25 07/18/25 History metoprolol tartrate 50 mg tablet 50 mg PO BID 05/26/25 07/18/25 History rivaroxaban 20 mg tablet (Xarelto) 20 mg PO DAILY 05/26/25 07/18/25 History semaglutide 0.25 mg or 0.5 mg (2 2 mg subcut QWEEK 05/26/25 07/18/25 History mg/3 mL) subcutaneous pen injector (Ozempic) aspirin 81 mg capsule 81 mg PO DAILY 05/27/25 07/18/25 History cyanocobalamin (vitamin B-12) 1,000 mcg sublingual BID 05/27/25 07/18/25 History 1,000 mcg sublingual lozenge divalproex 250 mg tablet,delayed 1,000 mg PO HS 05/27/25 07/18/25 History release (Depakote) divalproex 250 mg tablet,delayed 750 mg PO .am 05/27/25 07/18/25 History release (Depakote) gabapentin 600 mg tablet 600 mg PO DAILY 05/27/25 07/18/25 History quetiapine 50 mg tablet (Seroquel) 50 mg PO ONCE HS 05/27/25 07/18/25 History spironolactone 25 mg tablet 25 mg PO DAILY 05/27/25 07/18/25 History (Aldactone) furosemide 40 mg tablet (Lasix) 40 mg PO DAILY #30 tabs 05/28/25 07/18/25 Rx bupropion HCl 100 mg tablet,12 hr 100 mg PO BID 07/18/25 07/18/25 History sustained-release diclofenac sodium 1 % topical gel 4 g topical TID PRN 07/18/25 07/18/25 History (Voltaren Arthritis Pain) enalapril maleate 2.5 mg tablet 2.5 mg PO HS 07/18/25 07/18/25 History sertraline 100 mg tablet 100 mg PO DAILY 07/18/25 07/18/25 History Exam Narrative Exam Narrative: Well-appearing gentleman sitting up in the chair no acute distress, ANO x 4, heart regular rhythm, lungs good auscultation bilaterally, abdomen soft, nontender, nondistended, significant +3 pitting edema in bilateral lower extremities to the knee Results Labs 07/18/25 10:15 07/18/25 10:15 Labs: Laboratory Results - last 24 hr 07/18/25 07/18/25 07/18/25 10:15 11:33 13:50 WBC 5.04 RBC 4.31 L Hgb 12.7 L Hct 39.7 L MCV 92 MCH 29.5 MCHC 32.0 RDW 14.8 H Plt Count 179 MPV 8.9 Immature Gran % 1.2 Neutrophils % 68.0 Lymphocytes % 13.5 Monocytes % 16.5 Eosinophils % 0.2 Basophils % 0.6 Nucleated RBC % 0.0 Absolute Neutrophils 3.43 Absolute Lymphocytes 0.68 L Absolute Monocytes 0.83 H Absolute Eosinophils 0.01 Absolute Basophils 0.03 Sodium 139 Potassium 5.0 Chloride 101 Carbon Dioxide 30.3 Anion Gap 7.7 BUN 31 H Creatinine 1.4 H Est GFR (CKD-EPI 2020) 54.75 Glucose 196 H Calcium 9.2 Magnesium 1.3 L Total Bilirubin 0.5 AST 39 H ALT 36 Alkaline Phosphatase 50 Troponin I 18 17 19 NT-Pro-B Natriuret Pep 1995 H Total Protein 7.6 Albumin 3.4 TSH 1.70 Last Vital Signs Temp 98.7 F 07/18/25 13:48 Pulse 70 07/18/25 13:48 Resp 16 07/18/25 13:48 BP 77/63 L 07/18/25 13:48 Pulse Ox 93 07/18/25 13:48 Time Spent Time spent with Patient: >75 minutes Time was spent: preparing to see the patient(eg.review tests), obtaining and/or reviewing separately otained hiistory, ordering medications,tests, procedures, referring, communicating with other health medication care manager, indepentently interpreting results, counseling the patient and care coordination
--- NOTE | 2025-07-18 15:00 | DI.US_ITS ---
APPROVED REPORT EXAM: Comprehensive 2D, Doppler, and color-flow Echocardiogram Patient Location: In-Patient Room/Bed: [address] In Store Marketer: García Hill RDCS (AE) Indications: CHF, AFIB, CLARK Other Information Study Quality: Fair. Technically limited study due to body habitus. Conclusion Normal left ventricular wall thickness and chamber size. Ejection fraction is 55%. There are no segmental wall motion abnormalities Mildly enlarged right ventricle. Mild right ventricular hypokinesis Both atria are moderately enlarged There is no significant valvular disease Left ventricular function is similar to prior study from May. Atria are now enlarged Wall motion Left Ventricle The left ventricle is normal size. The left ventricular systolic function is normal. The left ventricular ejection fraction is within the normal range. There is normal left ventricular wall thickness. No segmental wall motion abnormalities LVEF is 55%. Right Ventricle Right ventricle is mildly dilated. Right ventricle is mildly hypokinetic. Atria Left atrium is moderately dilated. Right atrium is moderately dilated. 2D Dimensions IVSD d PLAX 1.22 cm M: 0.6-1.2 LVPW d PLAX 1.15 cm M: 0.6 - 1.2 LVID d PLAX 6.12 cm M: 4.2 - 5.8 LVDs 4.54 cm M: 2.5 - 4.0 LV EF Teichholz 50.0 % FS 25.88 % LV EDV (Teich) 188.6 mL LV ESV (Teich) 94.3 mL Stroke Vol Index (Teich) 38.95 Auto EF LV EDV A4C 133.7 mL LV EDV A2C 96.6 mL LV EDV BP 113.6 mL LV ESV A4C 67.5 mL LV ESV A2C 50.9 mL LV ESV BP 58.1 mL LVEF(%) A4C 49.5 % LVEF(%) A2C 47.3 % LVEF(%) BP 48.8 % LV SV A4C 66.2 ml LV SV A2C 45.7 ml LV SV BP 55.5 ml LV CO A4C 6.0 L/min LV CO A2C 5.4 L/min LV CO BP 5.7 L/min HR A4C 91.37 BPM HR A2C 117.27 BPM LV EDV Index (BP) LA Volume LA Length A4C 6.6 cm LA Length A2C LA Area A4C s 26.01 cm2 LA Area A2C s LA Vol A4C A-L 87.56 mL LA Vol A2C A-L LA Vol Biplane A-L LA Vol A4C MOD 84.2 mL LA Vol A2C MOD LA Vol BP MOD RA Volume RA Area A4C 17.1 cm2 RA ESV A4C (A-L) 39.5mL RA Vol/BSA A4C A-L RA Length A4C 6.3 cm RA ESV A4C (MOD) 37.3mL
--- NOTE | 2025-07-18 15:19 | W.PC.ACHO ---
Registration Status: ADM IN Primary Language: Preferred Language: ED Information & Data Chief Complaint SOB 07/18/25 11:44 Chief Complaint SOB 07/18/25 11:17 Triage Note DC'd from here end of 07/18/25 09:47 for CHF/Afib. Seen in follow up w/PCP due to increased SOB, tremors, swelling. Referred here for further work up Medical / Surgical History (Last Reviewed 07/18/25 @ 12:05 by Fernando Izaguirre MD) Insulin dependent type 2 diabetes mellitus Atrial fibrillation Most Recent Vital Signs Temperature 37.1 C 07/18/25 13:48 Temperature Source Oral 07/18/25 09:47 Pulse 70 07/18/25 13:48 Pulse Rhythm Regular 07/18/25 13:48 Pulse 91 H 07/18/25 12:40 Respiratory Rate 16 07/18/25 13:48 Respiratory Effort Normal 07/18/25 13:48 Respiratory Depth Shallow 07/18/25 13:48 Respiratory Pattern Normal 07/18/25 13:48 Blood Pressure 77/63 L 07/18/25 13:48 Blood Pressure Mean 78 07/18/25 13:01 Blood Pressure Position Sitting 07/18/25 09:47 Pulse Oximetry 93 07/18/25 13:48 Oxygen Delivery Method Room Air 07/18/25 13:48 Oxygen Flow Rate 0 07/18/25 13:48 Pain Level 0 07/18/25 09:47 Allergies No Known Allergies Allergy (Unverified 07/18/25 09:51) IV IV Catheter Type [Left Saline Lock Antecubital] IV Catheter Gauge [Left 18 Antecubital] Diet Orders Category Date Time Status Diabetes Consistent CHO/Heart Healthy [DIET] Nutrition 07/18/25 Dinner Active Diagnostics 07/18/25 07/18/25 07/18/25 Range/Units 13:50 11:33 10:15 WBC 5.04 (4.4-10.8) 10^3/uL RBC 4.31 L (4.36-5.78) 10^6/uL Hgb 12.7 L (13.5-17.5) g/dL Hct 39.7 L (40.0-50.0) % MCV 92 (80-95) fL MCH 29.5 (27.0-33.0) pg MCHC 32.0 (32.0-36.0) % RDW 14.8 H (11.8-14.1) % Plt Count 179 (130-400) 10^3/uL MPV 8.9 (8.0-11.0) fL Immature Gran % 1.2 % Neutrophils % 68.0 % Lymphocytes % 13.5 % Monocytes % 16.5 % Eosinophils % 0.2 % Basophils % 0.6 % Nucleated RBC % 0.0 (0.0-0.3) % Absolute Neutrophils 3.43 (1.2-6.7) 10^3/uL Absolute Lymphocytes 0.68 L (1.2-3.4) 10^3/uL Absolute Monocytes 0.83 H (0.1-0.8) 10^3/uL Absolute Eosinophils 0.01 (0.0-0.7) 10^3/uL Absolute Basophils 0.03 (0.0-0.2) 10^3/uL Sodium 139 (136-145) mmol/L Potassium 5.0 (3.5-5.1) mmol/L Chloride 101 (98-107) mmol/L Carbon Dioxide 30.3 (21.0-32.0) mmol/L Anion Gap 7.7 (3-11) mmol/L BUN 31 H (7-18) mg/dL Creatinine 1.4 H (0.70-1.30) mg/dL Est GFR (CKD-EPI 2020) 54.75 (mL/min/1.73m2) Glucose 196 H (74-106) mg/dL Calcium 9.2 (8.5-10.1) mg/dL Magnesium 1.3 L (1.8-2.4) mg/dL Total Bilirubin 0.5 (0.2-1.0) mg/dL AST 39 H (15-37) U/L ALT 36 (16-63) U/L Alkaline Phosphatase 50 (46-116) U/L Troponin I 19 17 18 (<or=76) ng/L NT-Pro-B Natriuret Pep 1995 H (<300) pg/mL Total Protein 7.6 (6.4-8.2) g/dL Albumin 3.4 (3.4-5.0) g/dL TSH 1.70 (0.36-3.74) uIU/mL Intake and Output - 24 Hour Total 09/05/25 09:43 thru 07/18/25 15:07 Intake Total 100 Output Total 100 Balance 0 Weight 141.7 kg Intake: IV 100 Output: Urine 100 Other: Urine Color Yellow Urine Appearance Clear Urine Odor Normal Falls Risk Assessment History of Falls No History 07/18/25 13:48 Contributing Factors Impairments,Incontinence, 07/18/25 13:48 Medications Ambulatory Aids Uses ambulatory device 07/18/25 13:48 Tubes/Lines W/no contributing factors 07/18/25 13:48 Gait Evaluation W/no contributing factors 07/18/25 13:48 Cognition No cognitive impairment 07/18/25 13:48 Fall Total Score 44 07/18/25 13:48 Level of Risk Moderate Risk 07/18/25 13:48 Problems (Last Reviewed 07/18/25 @ 12:05 by Fernando Izaguirre MD) Non-insulin dependent type 2 diabetes mellitus (Acute) Acute exacerbation of congestive heart failure (Acute) v v v v v v v v v Sending and/or Receiving Nurses: Please use comment section below to note any information pertinent to the patient hand-off not included above. Information / Comments: Multiple calls to access to get pt transfered to floor so charting can begin Report received from: Edgard Love ED RN, report @ 12:58.
[2025-07-18] MEDS: Rivaroxaban 10 MG TABLET 20 MG PO (17:00)
[2025-07-18] MEDS: Normal Saline Flush 10 ML SYR IVP ×2 (17:00→20:38)
[2025-07-18] MEDS: Metoprolol 50 MG TAB PO (20:38)
[2025-07-18] MEDS: Gabapentin 600 MG TAB PO (20:38)
[2025-07-18] MEDS: QUEtiapine 50 MG TAB PO (20:39)
[2025-07-18] MEDS: buPROPion-CR 100 MG TABCR PO (20:39)
[2025-07-18] MEDS: Enalapril 5 MG TAB 2.5 MG PO (20:39)
[2025-07-18] MEDS: Divalproex 500 MG TABEC 1000 MG PO (20:39)
[2025-07-19] VITALS (9 sets, daily range): BP systolic 111–135; BP diastolic 64–73; PULSE 62–101; RESP 16–24; TEMP 36.2–37.1; O2SAT 90–99
[2025-07-19 06:30] LABS: HCT 37.3 % (40.0-50.0); HGB 11.9 g/dL (13.5-17.5); MCH 29.2 pg (27.0-33.0); MCHC 31.9 % (32.0-36.0); MCV 92 fL (80-95); MPV 8.9 fL (8.0-11.0); Platelet Count 156 10^3/uL (130-400); RBC 4.07 10^6/uL (4.36-5.78); RDW 15.2 % (11.8-14.1); RDW-SD 51.3 fL; WBC 4.52 10^3/uL (4.4-10.8)
[2025-07-19 06:47] LABS: Anion Gap 4.7 mmol/L (3-11); BUN 38 mg/dL (7-18); CO2 31.3 mmol/L (21.0-32.0); Calcium 9.1 mg/dL (8.5-10.1); Chloride 102 mmol/L (98-107); Estimated GFR 59.84 (mL/min/1.73m2); Glucose 137 mg/dL (74-106); Magnesium 2.0 mg/dL (1.8-2.4); Potassium 5.0 mmol/L (3.5-5.1); Sodium 138 mmol/L (136-145)
--- NOTE | 2025-07-19 08:35 | RESPIRATORY ---
Pt advised he had sleep study years ago and had a CPAP machine but is not compliant (he hasn't worn the CPAP machine in many, many years).
[2025-07-19] MEDS: buPROPion-CR 100 MG TABCR PO ×2 (08:48→19:42)
[2025-07-19] MEDS: Atorvastatin 10 MG TAB 20 MG PO (08:49)
[2025-07-19] MEDS: Metoprolol 50 MG TAB PO ×2 (08:49→19:42)
[2025-07-19] MEDS: Divalproex 250 MG TABEC 750 MG PO (08:49)
[2025-07-19] MEDS: Spironolactone 25 MG TAB PO (08:49)
[2025-07-19] MEDS: Aspirin E.C. 81 MG TABEC PO (08:49)
[2025-07-19] MEDS: Furosemide 20 MG/2 ML VIAL IVP ×2 (08:50→16:31)
[2025-07-19] MEDS: Sertraline 100 MG TAB PO (08:50)
[2025-07-19] MEDS: Normal Saline Flush 10 ML SYR IVP ×3 (08:51→19:41)
--- NOTE | 2025-07-19 11:51 | PGE_ITS ---
Date of Service Date of service: 07/19/25 Time of Service: 11:55 Assessment and Plan Assessment and plan (1) Acute exacerbation of congestive heart failure: Status: Acute Assessment and plan: - Patient presents with ongoing bilateral lower extremity edema despite being restarted on 20 mg p.o. twice daily Lasix - proBNP 1994 - Not requiring oxygen at this time, and no pulmonary edema seen on chest x-ray - Status post 20 mg IV Lasix in the emergency department -About 1 L urine output since admission, will continue with 20 mg IV Lasix twice daily - Strict I's and O's - Follow-up a.m. BMP - Continue home spironolactone 25 mg daily - Continue home aspirin and statin (2) Atrial fibrillation: Assessment and plan: - Continue home 50 mg metoprolol tartrate twice daily, Xarelto (3) Non-insulin dependent type 2 diabetes mellitus: Status: Acute Assessment and plan: - Continue home metformin Subjective Subjective Interval history since last seen: Patient states that he is doing well and has no complaints or concerns at this time. Exam Narrative Exam Narrative: Well-appearing gentleman sitting up in the chair no acute distress, ANO x 4, heart regular rhythm, lungs good auscultation bilaterally, abdomen soft, nontender, nondistended, roughly +1 pitting edema bilateral lower extremities Objective Last Vital Signs Temp 98.8 F 07/19/25 08:17 Pulse 62 07/19/25 08:17 Resp 16 07/19/25 08:17 BP 116/69 07/19/25 08:17 Pulse Ox 91 L 07/19/25 09:39 Laboratory Results - last 24 hr 07/18/25 07/18/25 07/19/25 11:33 13:50 06:01 WBC 4.52 RBC 4.07 L Hgb 11.9 L Hct 37.3 L MCV 92 MCH 29.2 MCHC 31.9 L RDW 15.2 H Plt Count 156 MPV 8.9 Sodium 138 Potassium 5.0 Chloride 102 Carbon Dioxide 31.3 Anion Gap 4.7 BUN 38 H Creatinine 1.3 Est GFR (CKD-EPI 2020) 59.84 Glucose 137 H Calcium 9.1 Magnesium 2.0 Troponin I 17 19 TSH 1.70 Time Spent with Patient Time Spent with Patient: >50 minutes Time was spent: preparing to see the patient(eg.review tests), obtaining and/or reviewing separately otained hiistory, ordering medications,tests, procedures, referring, communicating with other health career technical counselor, indepentently interpreting results, counseling the patient and care coordination
--- NOTE | 2025-07-19 12:23 | PDOC.CMIN ---
Date of service: 07/19/25 Time of Service: 12:23 Care Management Initial Assmt Initial Assessment Reason for Hospitalization: Acute exacerbation of CHF Functional Status/Living Situation Patient Presentation: Cecil was lying in bed visiting with his , Maribel, when CM met with him. They are both pleasant and engaged well in conversation. Cecil stated that he feels pretty good today, and is looking forward to going home, although he is agreeable to staying, if he is not yet medically cleared. Cecil and his live in [place], but they have a camper in [place] that they spend time in. Cecil has been in [place] since January, while his goes back and forth; she works in [place], therefore is in [place] more than Cecil. Cecil reported that he went to his hospital follow up appointment at [facility] after his previous admission, and has since established there with Dr. Kiran Watters. CM will continue to follow. 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 movies. Medications Medication Management: No Issues/Barriers identified Physical Functioning/Mobility Assistive Device: CPAP Advance Directives Advance Directives: Do you have an Advance Directive: Y 05/27/25, 07:49 AD On File at [facility]: N 05/27/25, 07:49 Date Asked 07/18/25 07/18/25, 09:51 AD Date Reviewed COLST On File at [facility] COLST Date Scanned Code Status Resuscitation Status Full Code Insurance Coverage/Financial Issues Insurance: [facility] Care Team Visit Care Team Role Provider Type Unknown Unknown Primary Care Provider STAFF PHYSICIAN Fernando Izaguirre MD Emergency Provider [facility] STAFF PHYSICIAN Rodrigo Cast MD Admit Provider [facility] STAFF PHYSICIAN Attending Provider Discharge Potential Discharge Needs: PCP F/U Appt Anticipated Barriers to Discharge: None Identified Patient/Family Education Needs: Review discharge instructions, discuss Ask Me Three Transportation: Private vehicle Plan: Anticipate Cecil will return home once medically cleared. His will drive him home via private vehicle. He will follow up with his PCP and discharge plan of care. CM will continue to follow. Social Determinants of Health Screening Will the Patient Participate in the Screening?: Declined to provide Do you worry about having a steady place to live?: choose not to answer PFSH All Active Problems (Updated 07/18/25 @ 14:43 by Rodrigo Cast MD) Non-insulin dependent type 2 diabetes mellitus (Acute) Acute exacerbation of congestive heart failure (Acute) Acute respiratory failure with hypoxia and hypercapnia (Acute) Medical History Insulin dependent type 2 diabetes mellitus Atrial fibrillation Social History Smoking/Tobacco Use Status: Never Smoking risk assessment performed?: Yes Housing: house
[2025-07-19] MEDS: Tamsulosin 0.4 MG CAPCR PO (14:41)
[2025-07-19] MEDS: Acetaminophen 325 MG TAB 650 MG PO (16:31)
[2025-07-19] MEDS: Rivaroxaban 10 MG TABLET 20 MG PO (16:31)
[2025-07-19] MEDS: QUEtiapine 50 MG TAB PO (19:42)
[2025-07-19] MEDS: Enalapril 5 MG TAB 2.5 MG PO (19:42)
[2025-07-19] MEDS: Divalproex 500 MG TABEC 1000 MG PO (19:43)
[2025-07-19] MEDS: Gabapentin 600 MG TAB PO (19:43)
[2025-07-20 03:14] VITALS: BP 129/63; PULSE 76; RESP 20; TEMP 36.2; O2SAT 95
[2025-07-20 07:43] VITALS: BP 119/66; PULSE 66; RESP 17; TEMP 36.7; O2SAT 92
[2025-07-20] MEDS: Aspirin E.C. 81 MG TABEC PO (08:34)
[2025-07-20] MEDS: buPROPion-CR 100 MG TABCR PO (08:34)
[2025-07-20] MEDS: Tamsulosin 0.4 MG CAPCR PO (08:34)
[2025-07-20] MEDS: Sertraline 100 MG TAB PO (08:34)
[2025-07-20] MEDS: Divalproex 250 MG TABEC 750 MG PO (08:35)
[2025-07-20] MEDS: Atorvastatin 10 MG TAB 20 MG PO (08:35)
[2025-07-20] MEDS: Metoprolol 50 MG TAB PO (08:35)
[2025-07-20] MEDS: Spironolactone 25 MG TAB PO (08:35)
[2025-07-20] MEDS: Furosemide 20 MG/2 ML VIAL IVP (08:37)
[2025-07-20] MEDS: Normal Saline Flush 10 ML SYR IVP ×2 (08:37→10:56)
[2025-07-20] MEDS: Acetaminophen 325 MG TAB 650 MG PO (08:46)
--- NOTE | 2025-07-20 11:23 | W.PM.DS.N ---
Date of service: 07/20/25 Time of Service: 11:23 DS: Diagnosis Discharge Diagnosis (1) Acute exacerbation of congestive heart failure: Status: Acute (2) Atrial fibrillation: (3) Non-insulin dependent type 2 diabetes mellitus: Status: Acute Discharge Plan Disposition Patient Disposition: Home Condition: Good Discharge Details Reason For Visit: Acute exacerbation of CHF Admit Date/Time: 07/18/25 12:05 Admit Provider: Rodrigo Cast Attending Provider: Rodrigo Cast Primary Care Provider: Unknown,Unknown Hospital Course Hospital Course: Patient initially presented with signs and symptoms consistent with exacerbation of congestive heart failure with fluid overload despite restarting Lasix at home. Patient responded well to IV Lasix equivalent of double the dose with patient was on at home (40 mg p.o. daily). Patient had overall improvement in his lower extremity edema and was determined to be stable for discharge home and will be sent with 40 mg of p.o. Lasix twice daily and recommended close follow-up with his PCP. Home Meds and New Rx's Prescriptions: New furosemide [Lasix] 40 mg tablet 40 mg PO BID Qty: 90 0RF Continued Xarelto 20 mg tablet 20 mg PO DAILY Rx Instructions: must administer with evening meal atorvastatin [Lipitor] 10 mg tablet 20 mg PO DAILY metoprolol tartrate 50 mg tablet 50 mg PO BID Ozempic 0.25 mg or 0.5 mg (2 mg/3 mL) pen injector 2 mg subcut QWEEK metformin 1,000 mg tablet 500 mg PO BID divalproex [Depakote] 250 mg tablet,delayed release (DR/EC) 750 mg PO .am Rx Instructions: morning gabapentin 600 mg tablet 600 mg PO HS spironolactone [Aldactone] 25 mg tablet 25 mg PO DAILY quetiapine [Seroquel] 50 mg tablet 50 mg PO HS Rx Instructions: administer on day 1 of therapy aspirin 81 mg capsule 81 mg PO DAILY divalproex [Depakote] 250 mg tablet,delayed release (DR/EC) 1,000 mg PO HS cyanocobalamin (vitamin B-12) 1,000 mcg lozenge 1,000 mcg sublingual BID enalapril maleate 2.5 mg tablet 2.5 mg PO HS Patient Comments: TAKE 1 TABLET BY MOUTH TWICE DAILY HOLD FOR BLOOD PRESSURE LESS THAN 100/60 (<100/<60) bupropion HCl 100 mg tablet sustained-release 12 hr 100 mg PO BID Patient Comments: TAKE 1 TABLET BY MOUTH TWICE DAILY sertraline 100 mg tablet 100 mg PO DAILY diclofenac sodium [Voltaren Arthritis Pain] 1 % gel 4 g topical TID PRN Rx Instructions: apply to single knee, ankle, foot; for foot includes sole/toes/top of foot Discontinued furosemide [Lasix] 40 mg tablet 40 mg PO DAILY Qty: 30 0RF Discharge Instructions Activity:: Activity as Tolerated Equipment/Supplies:: No Equipment Needed Diet:: As Tolerated Discharge Orders Discharge Orders: Discharge Order (Routine); Ordered 07/20/25 Ordered By: Rodrigo Cast DS: Summary Time Spent with Patient providing and/or coordinating discharge services: Greater than 30 minutes Status at Discharge Functional status at discharge: independent ambulation Overall status at discharge: patient is back to baseline Mental Status: mental status grossly normal Speech and Movement: speech and movement normal Mood: congruent mood Affect: normal affect Quality:SDOH Health Related Social Needs: Health related social needs inadequate housing lonely/isolated Health related social needs details . Exam Narrative Exam Narrative: Well-appearing gentleman sitting up in the chair no acute distress, ANO x 4, heart regular rhythm, lungs good auscultation bilaterally, abdomen soft, nontender, nondistended, minimal edema bilateral lower extremities Psych Mental Status: mental status grossly normal Speech and Movement: speech and movement normal Mood: congruent mood Affect: normal affect DS: Data Vitals/I&O Vitals and I&O: Vital Signs Temperature 98.1 F 07/20/25 07:43 Temperature Source Temporal Artery Scan 07/20/25 07:43 Pulse 66 07/20/25 07:43 Pulse Rhythm Regular 07/18/25 13:48 Pulse 91 H 07/18/25 12:40 Respiratory Rate 17 07/20/25 07:43 Respiratory Effort Normal 07/18/25 13:48 Respiratory Depth Shallow 07/18/25 13:48 Respiratory Pattern Normal 07/18/25 13:48 Blood Pressure 119/66 07/20/25 07:43 Blood Pressure Mean 83 07/20/25 07:43 Blood Pressure Position Sitting 07/18/25 09:47 Pulse Oximetry 92 07/20/25 07:43 Oxygen Delivery Method Room Air 07/20/25 07:43 Oxygen Flow Rate 0 07/20/25 07:43 Pain Level 6 07/20/25 08:46 Comment Pt moves ind. in bed and in the room, pt uses straight cane to transfer. Pt is resting on his back in a low semi persaud's position, RR are 20 and pt's chest rising w/o labor or distress, call light is within reach. 07/19/25 23:07 Intake & Output 07/19/25 07/20/25 07/20/25 17:59 05:59 17:59 Intake Total 840 / 840 300 / 1140 Output Total 775 / 775 550 / 1325 325 / 325 Balance 65 / 65 -250 / -185 -325 / -325 Intake: IV 300 / 300 Oral 840 / 840 Output: Urine 775 / 775 550 / 1325 325 / 325 Other: Urine Color Light Cora Dark Croa Yellow Urine Appearance Clear Clear Clear Urine Odor Normal Strong Normal Comment frequent voids of small amounts Pt voids ind. in urinal. Stool Size Large Stool Characteristics Soft Formed PFSH All Active Problems (Updated 07/18/25 @ 14:43 by Rodrigo Cast MD) Non-insulin dependent type 2 diabetes mellitus (Acute) Acute exacerbation of congestive heart failure (Acute) Acute respiratory failure with hypoxia and hypercapnia (Acute) Medical History Insulin dependent type 2 diabetes mellitus Atrial fibrillation Social History Smoking/Tobacco Use Status: Never Smoking risk assessment performed?: Yes Housing: house Time Spent with Patient Time Spent with Patient: <45 minutes Time was spent: preparing to see the patient(eg.review tests), obtaining and/or reviewing separately otained hiistory, ordering medications,tests, procedures, referring, communicating with other health student career development specialist, indepentently interpreting results, counseling the patient and care coordination
[2025-07-20 11:39] VITALS: BP 116/63; PULSE 70; RESP 18; TEMP 36.6; O2SAT 92
--- NOTE | 2025-07-20 16:56 | CMDISCH_ITS ---
Date of service: 07/20/25 Time of Service: 16:56 LACE Index Scoring Tool Questions: Length of Stay (in days): 2 Was the patient admitted via the E.D.?: Yes Comorbidities: Diabetes w/o Complication and Congestive Heart Failure E.D. Visits: 1 Answers: Total Score: 9 Risk of Readmission: Low Risk Care Management Discharge Plan Reason for Hospitalization: Acute exacerbation of CHF Discharge Plan: Cecil returned home today with no new services. His drove him home via private vehicle. He will follow up with his PCP and discharge plan of care. He was happy to be going home. Patient/Family Education Needs: Review discharge instructions and limitations, discussion of self care needs including ask me three. SDOH Health Related Social Needs: Health related social needs inadequate housing lonely/ isolated Health related social needs details .
== END 2025-07-20 13:13 | disposition home or self-care (01) | DRG 292 ==
LOC: ER 09:51 → MS 13:38
PROVIDERS: Admitting Provider Family Medicine; Emergency Provider Student in an Organized Health Care Education/Training Program; Responsible Provider Family Medicine; Visit Provider Family Medicine
DX: I50.9 Heart failure, unspecified (principal); I48.91 Unspecified atrial fibrillation; E11.9 Type 2 diabetes mellitus without complications; Z79.85 Long-term (current) use of injectable non-insulin antidiabetic drugs; Z79.84 Long term (current) use of oral hypoglycemic drugs; Z59.10 Inadequate housing, unspecified; Z79.01 Long term (current) use of anticoagulants; R45.89 Other symptoms and signs involving emotional state; R47.81 Slurred speech; R53.1 Weakness; E83.42 Hypomagnesemia
CPT/HCPCS: 00123; 36415; 70496; 70498; 80048; 80053; 85027; 93005; 93306; 93308; 96365; 96375; 99285; 71046; 83735; 83880; 84443; 84484; 85025; 93010; 94760; 99223; 99233; 99238; J0131; J1938; J3475

== ENCOUNTER 2025-07-24 14:50 | Outpatient (REF) | payer MEDICARE, BC, SELFPAY ==
[2025-07-24 16:24] LABS: Anion Gap 3.7 mmol/L (3-11); BUN 33 mg/dL (7-18); CO2 33.3 mmol/L (21.0-32.0); Calcium 9.0 mg/dL (8.5-10.1); Chloride 103 mmol/L (98-107); Estimated GFR 73.12 (mL/min/1.73m2); Glucose 124 mg/dL (74-106); Potassium 5.7 mmol/L (3.5-5.1); Sodium 140 mmol/L (136-145)
== END 2025-07-24 14:51 | disposition home or self-care (01) ==
LOC: NCHCN 14:50
PROVIDERS: PCP Family Medicine; Visit Provider Family Medicine
DX: I50.9 Heart failure, unspecified (principal)
CPT/HCPCS: 80048